=== PATIENT | male | born 1955 | race Asian ===

== ENCOUNTER 2019-07-12 21:18 | Inpatient (IN) | payer OTHER, MEDICAID ==
[~2019-07-12] VITALS: Ht 157.5 cm; Wt 49.9 kg
[2019-07-12 21:18] VITALS: BP 162/115
--- NOTE | 2019-07-12 21:18 | NUR ---
PT [facility] BLS. TAKEN TO BED 10
--- NOTE | 2019-07-12 21:20 | NUR ---
63/M PRESENTED TO ED BIBA. PT FROM [facility] WITH C/O ABD PAIN. 10/10 ABD PAIN. BOWEL SOUNDS HYPOACTIVE. NO DISTENTION NOTED. PT STATES V/D. NO FEVER NOTED. HX OF ENTEROCHOLITIS, STAGE 4 CHOLERECTAL CANCER, DEMENTIA, OSTEOARTHRITIS. TACHY AND HYPERTENSIVE.
--- NOTE | 2019-07-12 21:27 | NUR ---
Dr. Ponce examining patient.
[2019-07-12] MEDS ORDERED: NACL 0.9% 1,000 ML IV SCH ×2 (21:31→23:54)
[2019-07-12] MEDS ORDERED: MORPHINE SULFATE 2 MG/ML SYR IVP ONE (21:35)
--- NOTE | 2019-07-12 22:00 | NUR ---
PT TAKEN TO RAD
[2019-07-12 22:04] LABS: HEMATOCRIT 45.4 % (36-52); HEMOGLOBIN 14.9 g/dL (12.0-18.0); MEAN CORPUSCULAR HEMOGLOBIN 32 pg (27-31); MEAN CORPUSCULAR HGB CONC 33 g/dL (33-37); MEAN CORPUSCULAR VOLUME 99.2 fL (80-94); PLATELET COUNT (AUTO) 408 K/uL (140-450); RED BLOOD CELL COUNT(AUTO) 4.58 MIL/uL (4.20-6.10); RED CELL DISTRIBUTION WIDTH 21.1 % (11.6-13.7); WHITE BLOOD COUNT (AUTO) 3.3 K/uL (4.8-10.8)
[2019-07-12 22:15] LABS: PROTHROMBIN TIME 31.4 secs (10.8-13.4)
--- NOTE | 2019-07-12 22:15 | NUR ---
FAMILY AT BEDSIDE
[2019-07-12 22:18] LABS: ALBUMIN 2.3 g/dL (3.4-5.0); ANION GAP 14.6 (8-16); CARBON DIOXIDE 26.3 mmol/L (21-32); CREATININE 1.2 mg/dL (0.7-1.3); TOTAL BILIRUBIN 0.4 mg/dL (0.0-1.0)
[2019-07-12 22:20] LABS: POTASSIUM 2.9 mmol/L (3.5-5.1)
[2019-07-12 22:21] LABS: LYMPHOCYTES % (MANUAL) 47 % (20-46); MONOCYTES % (MANUAL) 13 % (5-12)
[2019-07-12] MEDS ORDERED: NACL 0.9% 500 ML IV ONE (22:25)
[2019-07-12] MEDS ORDERED: LEVOFLOXACIN 500 MG/D5W PREMIX 100 ML IV ONE (22:25)
[2019-07-12] MEDS ORDERED: POTASSIUM CHLORIDE 10 MEQ TABER PO ONE (22:25)
[2019-07-12] MEDS ORDERED: DOCU-300 PO (22:33)
[2019-07-12] MEDS ORDERED: [UNRECOGNIZED DRUG - CODE] PO (22:36)
[2019-07-12] MEDS ORDERED: MSCON30 PO (22:37)
--- NOTE | 2019-07-12 22:38 | NUR ---
PT UNABLE TO URINATE AT THIS TIME
[2019-07-12] MEDS ORDERED: METR500T1 PO (22:43)
[2019-07-12] MEDS ORDERED: CIPR500T4 PO (22:45)
--- NOTE | 2019-07-12 23:15 | NUR ---
PT DIARRHEA. CHANGED PT DIRTY LINENS. TOLERATED WELL.
[2019-07-12] MEDS ORDERED: hydrALAZINE 20 MG/ML VIAL IVP ONE (23:45)
[2019-07-12] MEDS ORDERED: LORazepam 2 MG/ML VIAL IM/IVP PRN (23:55)
[2019-07-12] MEDS ORDERED: ONDANSETRON 4 MG/2 ML VIAL IM/IVP PRN (23:55)
[2019-07-12] MEDS ORDERED: MORPHINE SULFATE 2 MG/ML SYR IVP PRN (23:55)
[2019-07-12] MEDS ORDERED: HYDROcodone/APAP 5/325 MG 1 TAB TAB PO PRN (23:55)
[2019-07-12] MEDS ORDERED: ZOLPIDEM 5 MG TAB PO PRN (23:55)
[2019-07-12] MEDS ORDERED: ACETAMINOPHEN 325 MG TAB PO PRN (23:55)
[2019-07-12] MEDS ORDERED: DOCUSATE SODIUM 100 MG GELCAP PO PRN (23:55)
[2019-07-12] MEDS ORDERED: hydrALAZINE 20 MG/ML VIAL ONE (23:57)
--- NOTE | 2019-07-13 00:09 | NUR ---
Dr. Brewer examining patient.
[2019-07-13 00:27] LABS: CHOL/HDL RATIO 2.1 (1-4.5); PHOSPHORUS 3.6 mg/dL (2.5-4.9); THYROID STIMULATING HORMONE 1.97 uIU/mL (0.34-3.74)
--- NOTE | 2019-07-13 00:50 | NUR ---
Patient will be admitted to care of [facility]. Admited to TELE. Will go to room 106 A. Belongings list completed. Report to MACHO GORDON.
--- NOTE | 2019-07-13 00:58 | NUR ---
RECIEVED PT AAOX1 , DEMENTIA, NID C/O ABDL. PAIN , FROM ER/GURNEY -TRANSFER TO BED BY MANUAL LIFT , IV SITE INTACT AND PATENT ,ACCOMPANIED BY SON , SKIN INTACT , INCONTINENT , ON NPO EXCEPT MEDS , PLAN OF CARE DISCUSSED BUT POOR ON UNDERSTANDING DUE TO MENTAL STATUS , ADMISSION ASSESSMENT DONE , MRSA SPECIMEN COLLECTED AND SENT TO LAB. . ON SAFETY/ FALL RISK PRECAUTION PROTOCOL - CALL LIGHT WITHIN REACH , WILL CONT. TO MONITOR.
[2019-07-13 01:00] LABS: APPEARANCE,URINE HAZY (CLEAR); BILIRUBIN,URINE 2+ (NEGATIVE); BLOOD, URINE 2+ (NEGATIVE); LEUKOCYTE ESTERASE ,URINE NEGATIVE (NEGATIVE); NITRITE, URINE POSITIVE (NEGATIVE); PH,URINE 6.5 (5.0-9.0); UGLUCOSE NEGATIVE (NEGATIVE)
[2019-07-13 01:06] VITALS: BP 117/67
[2019-07-13 01:08] LABS: COLOR,URINE AMBER (YELLOW)
[2019-07-13 01:17] LABS: RBC,URINE 20-50 /HPF (0-5); WBC,URINE 0-5 /HPF (0-5)
[2019-07-13] MEDS ORDERED: HYDROmorphone 1 MG/ML AMP IVP SCH (01:30)
[2019-07-13] MEDS ORDERED: INSULIN LISPRO SLIDING SCALE 100 UNITS/ML VIAL SUBQ PRN (01:30)
[2019-07-13] MEDS ORDERED: DEXTROSE 50% 50 ML SYR IVP PRN (01:30)
[2019-07-13 04:00] VITALS: BP 114/72
--- NOTE | 2019-07-13 04:00 | NUR ---
MADE ROUNDS , NO SIGNS OF DISTRESS NOTED - CALL LIGHT WITHIN REACH - ABD.- SOFT.
--- NOTE | 2019-07-13 04:32 | NUR ---
MADE ROUNDS , LOCALIZES PAIN -C/O PAIN - WILL MEDICATE ORDERED , WILL CONT. TO MONITOR.
[2019-07-13] MEDS: metroNIDAZOLE 500 MG/NS PREMIX 100 ML IV SCH ×3 (05:30→21:13)
[2019-07-13 06:36] LABS: MAGNESIUM 1.8 mg/dL (1.8-2.4); PHOSPHORUS 2.3 mg/dL (2.5-4.9)
--- NOTE | 2019-07-13 06:42 | NUR ---
PATIENT HAS BEEN SCREENED AND CATEGORIZED HIGH NUTRITION RISK. PATIENT WILL BE SEEN WITHIN 1-2 DAYS OF ADMISSION. 07/13/19-07/15/19 KELVIN TORREZ MS, RDN
[2019-07-13 06:46] LABS: ANION GAP 15.9 (8-16); CARBON DIOXIDE 21.8 mmol/L (21-32); CREATININE 0.9 mg/dL (0.7-1.3)
[2019-07-13 06:50] LABS: BASOPHILS % (AUTO) 0.2 % (0.0-2.0); EOSINOPHILS % (AUTO) 0.5 % (0.0-4.0); HEMOGLOBIN 12.8 g/dL (12.0-18.0); LYMPHOCYTES # (AUTO) 0.8 K/uL (2.0-11.5); MEAN CORPUSCULAR HEMOGLOBIN 33 pg (27-31); MEAN CORPUSCULAR HGB CONC 33 g/dL (33-37); MEAN CORPUSCULAR VOLUME 99.3 fL (80-94); MONOCYTES # (AUTO) 0.5 K/uL (0.8-1.0); MONOCYTES % (AUTO) 14.2 % (1.7-9.3); NEUTROPHILS % (AUTO) 61.1 % (42.2-75.2); PLATELET COUNT (AUTO) 324 K/uL (140-450); POTASSIUM 2.7 mmol/L (3.5-5.1); RED BLOOD CELL COUNT(AUTO) 3.93 MIL/uL (4.20-6.10); RED CELL DISTRIBUTION WIDTH 21.3 % (11.6-13.7); WHITE BLOOD COUNT (AUTO) 3.3 K/uL (4.8-10.8)
[2019-07-13] MEDS: BLOOD GLUCOSE MONITORING 1 DEV DEV FS SCH ×4 (07:06→20:17)
--- NOTE | 2019-07-13 07:30 | NUR ---
ENDORSED TO AM SHIFT WITH STABLE CONDITION.
--- NOTE | 2019-07-13 07:31 | NUR ---
RECEIVED BEDSIDE REPORT FROM CONFERENCE ASSISTANT NURSE. PATIENT IS AWAKE, ALERT AND ORIENTEDX4. NO SIGNS OF DISTRESS ON RA. SKIN IS INTACT. PATIENT IS FALL RISK D/T WEAKNESS. FALL RISK PROTOCOL IN PLACE. PATIENT IS CONTINENT, URINAL AT BEDSIDE. IV ON L AC 20G INFUSING NS AT 60. CLEAN, DRY AND INTACT. PATIENT IS NPO, SIGNS POSTED. BED IN LOW POSITION. CALL LIGHT WITHIN REACH. TELE MONITOR IN PLACE. WILL CONTINUE TO MONITOR
[2019-07-13 08:00] VITALS: BP 136/102
[2019-07-13] MEDS: LACTOBACILLUS RHAMNOSUS GG 1 EACH CAP PO SCH (08:06)
[2019-07-13] MEDS: DEXT 5% / NACL 0.9% 1,000 ML IV SCH (08:14)
--- NOTE | 2019-07-13 08:29 | NUR ---
ADMINISTERED MEDS. AND PRN PAIN MED. EDUCATED ON SIDE EFFECTS. PATIENT TOLERATED WELL. PLACED NGT IN R NOSTRIL. PATIENT TOLERATED WELL. DR PINEDO CHECKED FOR PLACEMENT, HE SAID NO NEED FOR XRAY JUST START LOW INTERMITTENT SUCTION. PATIENT ON LOW INTERMITTENT SUCTION. WILL CONTINUE TO MONITOR THE PATIENT.
[2019-07-13] MEDS ORDERED: SODIUM PHOSPHATE 118 ML ENEM RC SCH (08:41)
[2019-07-13] MEDS ORDERED: METOCLOPRAMIDE 10 MG/2 ML INJ VIAL IVP PRN (09:10)
[2019-07-13] MEDS: KCL 20 MEQ/WATER INJ PREMIX 200 ML IV SCH ×2 (09:26→11:28)
--- NOTE | 2019-07-13 09:26 | NUR ---
ADMINISTERED JOJO MED. PATIENT TOLERATING WELL. PATIENT NEEDS TO USE THE URINAL. GAVE PATIENT THE URINAL.
[2019-07-13] MEDS: HYDROmorphone 1 MG/ML AMP IVP PRN ×4 (10:16→22:42)
--- NOTE | 2019-07-13 11:30 | NUR ---
ADMINISTERED [facility] MED. PATIENT TOLERATING WELL. WILL CONTINUE TO MONITOR THE PATIENT
[2019-07-13 12:00] VITALS: BP 145/101
--- NOTE | 2019-07-13 12:28 | NUR ---
PATIENT IN NO DISTRESS. FAMILY AT BEDSIDE. WILL CONTINUE TO MONITOR
--- NOTE | 2019-07-13 13:43 | NUR ---
ADMINISTERED MEDS. PATIENT TOLERATED WELL. WILL CONTINUE TO MONITOR THE PATIENT
[2019-07-13 14:19] LABS: ANION GAP 9.8 (8-16); CREATININE 0.9 mg/dL (0.7-1.3); POTASSIUM 3.8 mmol/L (3.5-5.1)
--- NOTE | 2019-07-13 15:14 | NUR ---
PATIENT SITTING IN BED. NO SIGNS OF DISTRESS. FAMILY AT BEDSIDE
[2019-07-13] MEDS: MORPHINE SULFATE 2 MG/ML SYR IVP PRN ×2 (15:21→20:05)
--- NOTE | 2019-07-13 15:24 | NUR ---
PATIENT HAS PAIN. ADMINISTERED PRN PAIN MED. PATIENT TOLERATED WELL. EDUCATED ON SIDE EFFECTS.
[2019-07-13 16:00] VITALS: BP 142/99
--- NOTE | 2019-07-13 17:07 | NUR ---
patient is sleeping, will continue to monitor
--- NOTE | 2019-07-13 17:48 | NUR ---
ADMINISTERED PRN PAIN MED. PATIENT EDUCATED ON SIDE EFFECTS. TOLERATED WELL
--- NOTE | 2019-07-13 19:19 | NUR ---
GAVE BEDSIDE REPORT TO EVENT PROMOTIONS COORDINATOR NURSE. PATIENT ENDORSED IN STABLE CONDITION
--- NOTE | 2019-07-13 19:19 | NUR ---
RECIEVED PT. AAOX4 , NID , WITH NGT CONNECTING TO SUCTION - PATENT DRAINING WITH CLEAR LIQ. WITH SOME BROWN PARTICLES. C/O ABDL. PAIN , WITH IV SITE INTACT AND PATENT , WITH MEDI PORT AT THE UPPER RIGHT CHEST , ON SAFETY /FALL PREACAUTION PROTOCOL -BED ALARM ON , PLAN OF CARE DISCUSSED AND AND VERBALIZES UNDERSTANDING,SOFT AND FLAT ADBOMEN. WILL CONT. TO MONITOR. STILL FOR STOOL COLLECTION.
[2019-07-13 20:00] VITALS: BP 140/90
[2019-07-13] MEDS: LEVOFLOXACIN 500 MG/D5W PREMIX 100 ML IV SCH (22:47)
[2019-07-14] VITALS: BP 130/72
[2019-07-14] MEDS: MORPHINE SULFATE 2 MG/ML SYR IVP PRN ×2 (01:01→09:56)
[2019-07-14] MEDS: HYDROmorphone 1 MG/ML AMP IVP PRN ×6 (03:13→21:10)
--- NOTE | 2019-07-14 03:13 | NUR ---
C/O ABDL PAIN - ABD. SOFT , FLAT , BP :140/92 , O2 SAT 99% NM 100 - DILAUDID TIV GIVEN ORDERED - WILL CONT. TO MONITOR . CALL LIGHT WITHIN REACH.
[2019-07-14] MEDS: DEXT 5% / NACL 0.9% 1,000 ML IV SCH ×2 (03:23)
[2019-07-14 04:00] VITALS: BP 150/90
[2019-07-14] MEDS: metroNIDAZOLE 500 MG/NS PREMIX 100 ML IV SCH ×3 (05:06→21:04)
--- NOTE | 2019-07-14 06:00 | NUR ---
MADE ROUNDS , RESTING ON BED , TALKING OVER THE CELPHONE, WILL CONT. TO MONITOR. CALL LIGHT WITHIN REACH.
[2019-07-14] MEDS: BLOOD GLUCOSE MONITORING 1 DEV DEV FS SCH ×4 (06:51→21:04)
[2019-07-14 07:12] LABS: BASOPHILS % (AUTO) 0.1 % (0.0-2.0); EOSINOPHILS % (AUTO) 0.5 % (0.0-4.0); HEMATOCRIT 40.1 % (36-52); HEMOGLOBIN 13.2 g/dL (12.0-18.0); LYMPHOCYTES # (AUTO) 0.9 K/uL (2.0-11.5); MEAN CORPUSCULAR HEMOGLOBIN 33 pg (27-31); MEAN CORPUSCULAR HGB CONC 33 g/dL (33-37); MONOCYTES # (AUTO) 0.4 K/uL (0.8-1.0); MONOCYTES % (AUTO) 9.6 % (1.7-9.3); NEUTROPHILS % (AUTO) 69.8 % (42.2-75.2); PLATELET COUNT (AUTO) 317 K/uL (140-450); RED BLOOD CELL COUNT(AUTO) 4.05 MIL/uL (4.20-6.10); RED CELL DISTRIBUTION WIDTH 21.3 % (11.6-13.7); WHITE BLOOD COUNT (AUTO) 4.4 K/uL (4.8-10.8)
--- NOTE | 2019-07-14 07:16 | NUR ---
ENDORSED TO AM SHIFT FOR CONT. OF CARE , WITH STABLE CONDITION.
--- NOTE | 2019-07-14 07:17 | NUR ---
RECEIVED BEDSIDE REPORT FROM CONSTRUCTION PROJECT ADMINISTRATOR NURSE. PATIENT IS AWAKE, ALERT AND ORIENTEDX4. NO SIGNS OF DISTRESS ON RA. SKIN IS INTACT. IV ON L AC 20G INFUSING NS AT 60. CLEAN, DRY AND INTACT. TELE MONITOR IN PLACE. PATIENT IS FALL RISK, PROTOCOL IN PLACE. CONTINENT, URINAL AT BEDSIDE. NPO, SIGNS ARE POSTED. NGT IN R NARES ON INTERMITTENT SUCTION. BED IN LOW POSITION. CALL LIGHT WITHIN REACH. WILL CONTINUE TO MONITOR THE PATIENT.
[2019-07-14 08:00] VITALS: BP 129/93
[2019-07-14] MEDS: LACTOBACILLUS RHAMNOSUS GG 1 EACH CAP PO SCH (08:00)
[2019-07-14 08:01] LABS: ANION GAP 11.9 (8-16); CARBON DIOXIDE 24.8 mmol/L (21-32); CREATININE 0.9 mg/dL (0.7-1.3)
[2019-07-14 08:08] LABS: POTASSIUM 2.7 mmol/L (3.5-5.1)
--- NOTE | 2019-07-14 08:09 | NUR ---
ADMINISTERED MEDS. PATIENT TOLERATED WELL. EDUCATED ON SIDE EFFECTS. HELD LACTOBACILLUS, PATIENT ON NGT SUCTION AT THIS TIME. WILL CONTINUE TO MONITOR
[2019-07-14 08:15] LABS: MAGNESIUM 1.8 mg/dL (1.8-2.4); PHOSPHORUS 1.5 mg/dL (2.5-4.9)
[2019-07-14] MEDS ORDERED: POTASSIUM CHLORIDE 40 MEQ, LIDOCAINE MPF 1% - 5 mL VIAL 25 MG in NACL 0.9% 250 ML IV SCH (09:30)
--- NOTE | 2019-07-14 10:05 | NUR ---
ADMINISTERED MEDS. PATIENT TOLERATED WELL. EDUCATED ON SIDE EFFECTS. WILL CONTINUE TO MONITOR
--- NOTE | 2019-07-14 11:14 | NUR ---
CONTACTED PATIENT'S SISTER SHAHRIAR DECKER AT [phone] REGARDING HOSPICE EVAL, NO ANSWER. LEFT MESSAGE.
[2019-07-14 12:00] VITALS: BP 142/102
--- NOTE | 2019-07-14 12:35 | NUR ---
ADMINISTERED JOJO MED AND PRN PAIN MED. EDUCATED ON SIDE EFFECTS. PATIENT TOLERATED WELL
--- NOTE | 2019-07-14 13:13 | NUR ---
NUMBER OF THE PATIENT'S SISTER ON FILE IS A WRONG NUMBER. PRIMARY RN MADE AWARE.
--- NOTE | 2019-07-14 14:00 | NUR ---
PATIENT ASKED FOR BED SALVADOR. HAD A BM, DARK BROWN LIQ MUCOID. CLEANSED PATIENT. PATIENT LAYING IN BED W NO DISTRESS
--- NOTE | 2019-07-14 14:02 | NUR ---
CONTACTED PATIENT'S SISTER SHAHRIAR DECKER AT [phone], INTERPRETED BY DIGNA #[id number]. ALL HER CONCERNS AND QUESTIONS ANSWERED. SHE STATED SHE DOES NOT WANT HER BROTHER TO GO BACK TO [facility] BECAUSE THE PLACE IS TOO NOISY AND THE PATIENT COULD NOT SLEEP. SHE STATED THAT SHE WILL CONTACT ME TOMORROW WITH HER DECISION. DR. GARCIA MADE AWARE.
--- NOTE | 2019-07-14 15:57 | NUR ---
[employer] Note: I provided Radha from [facility] with printed patient's medical information.
[2019-07-14 16:00] VITALS: BP 131/97
--- NOTE | 2019-07-14 16:00 | NUR ---
PATIENT LAYING IN BED. NO DISTRESS. WILL CONTINUE TO MONITOR
--- NOTE | 2019-07-14 17:00 | NUR ---
ADMINISTERED NEEDED PAIN MED. PATIENT TOLERATED WELL. WILL CONTINUE TO MONITOR
[2019-07-14] MEDS: DEXT 5% / NACL 0.45% 1,000 ML IV SCH (17:01)
[2019-07-14 17:08] LABS: ANION GAP 10.4 (8-16); CREATININE 0.9 mg/dL (0.7-1.3); POTASSIUM 3.4 mmol/L (3.5-5.1)
--- NOTE | 2019-07-14 19:27 | NUR ---
GAVE BEDSIDE REPORT TO LOADING MACHINE ADJUSTER NURSE. PATIENT ENDORSED IN STABLE CONDITION
--- NOTE | 2019-07-14 19:28 | NUR ---
RECEIVED BEDSIDE REPORT FROM DAY SHIFT NURSE ALESSIA RN, PT STABLE, NO DISTRESS NOTED, IV TO L AC 20G PATENT,INTACT, INFUSING WELL, PT ON ROOM AIR, NO SOB, NG TUBE TO R NARES, ON SUCTION, PT RESTING, NO DISTRESS NOTED, DAUGHTER AT BEDSIDE, INITIAL ASSESSMENT DONE, ALL SAFETY PRECAUTION MET, CALL LIGHT WITHIN REACH, WILL CONTINUE TO MONITOR./
[2019-07-14 20:00] VITALS: BP 149/103
--- NOTE | 2019-07-14 21:10 | NUR ---
DUE MEDICATION ADMINISTERED, PT TOLERATED WELL, PT C/O PAIN, PAIN MEDICATION PER MD ORDER ADMINISTERED, PT RESTING, NO DISTRESS NOTED, CALL LIGHT WITHIN REACH, WILL CONTINUE TO MONITOR.
[2019-07-14] MEDS: LEVOFLOXACIN 500 MG/D5W PREMIX 100 ML IV SCH (23:12)
--- NOTE | 2019-07-14 23:12 | NUR ---
DUE MEDICATION ADMINISTERED, PT TOLERATED WELL, V/S TAKEN, WITHIN PT BASELINE, CALL LIGHT WITHIN REACH, WILL CONTINUE TO MONITOR.
[2019-07-15] VITALS: BP 143/97
[2019-07-15] MEDS: HYDROmorphone 1 MG/ML AMP IVP PRN ×5 (02:36→22:01)
--- NOTE | 2019-07-15 02:36 | NUR ---
PT C/O PAIN, PAIN MEDICATION PER DR ORDER ADMINISTERD, PT TOLERATED WELL, NO DISTRESS NOTED, CALL LIGHT WITHIN REACH, WILL CONTINUE TO MONITOR.
[2019-07-15] MEDS: DEXT 5% / NACL 0.45% 1,000 ML IV SCH ×2 (03:50→17:08)
[2019-07-15 04:00] VITALS: BP 142/106
[2019-07-15] MEDS: metroNIDAZOLE 500 MG/NS PREMIX 100 ML IV SCH ×3 (04:23→19:59)
--- NOTE | 2019-07-15 04:23 | NUR ---
DUE MEDICATION ADMINISTERED, V/S TAKEN, WITHIN PT BASELINE, CALL LIGHT WITHIN REACH, WILL CONTINUE TO MONITOR.
[2019-07-15] MEDS: BLOOD GLUCOSE MONITORING 1 DEV DEV FS SCH ×4 (05:39→19:35)
--- NOTE | 2019-07-15 05:50 | NUR ---
PT C/O PAIN, PAIN MEDICATION PER DR ORDER ADMINISTERED, PT TOLERATED WELL, NO DISTRESS NOTED, CALL LIGHT WITHOM REACH WILL CONTINUE TO MONITOR.
[2019-07-15 07:17] LABS: BASOPHILS % (AUTO) 0.1 % (0.0-2.0); EOSINOPHILS # (AUTO) 0.1 K/uL (0-0.4); EOSINOPHILS % (AUTO) 1.4 % (0.0-4.0); HEMATOCRIT 35.7 % (36-52); HEMOGLOBIN 11.7 g/dL (12.0-18.0); LYMPHOCYTES # (AUTO) 1.5 K/uL (2.0-11.5); LYMPHOCYTES % (AUTO) 23.1 % (20.5-51.1); MEAN CORPUSCULAR HEMOGLOBIN 32 pg (27-31); MEAN CORPUSCULAR HGB CONC 33 g/dL (33-37); MEAN CORPUSCULAR VOLUME 98.9 fL (80-94); MONOCYTES # (AUTO) 0.7 K/uL (0.8-1.0); MONOCYTES % (AUTO) 10.7 % (1.7-9.3); NEUTROPHILS # (AUTO) 4.1 K/uL (1.8-7.7); NEUTROPHILS % (AUTO) 64.7 % (42.2-75.2); PLATELET COUNT (AUTO) 264 K/uL (140-450); RED BLOOD CELL COUNT(AUTO) 3.61 MIL/uL (4.20-6.10); WHITE BLOOD COUNT (AUTO) 6.4 K/uL (4.8-10.8)
--- NOTE | 2019-07-15 07:24 | NUR ---
ENDORSED PT TO DAY SHIFT NURSE MARY RN, PT STABLE, NO DISTRESS NOTED, CALL LIGHT WITHIN REACH.
--- NOTE | 2019-07-15 07:26 | NUR ---
RECEIVED HAND OFF REPORT FROM PM RN PT AWAKE IN BED PT APPEARS STABLE AND IN NO APPARENT DISTRESS. PT IS SALINE LOCKED ALL SAFETY MEASURES ARE IN PLACE NG TUBE IN RIGHT NARES. WILL CONTINUE TO MONITOR
[2019-07-15 07:37] LABS: ANION GAP 10.6 (8-16); CARBON DIOXIDE 23.1 mmol/L (21-32); CREATININE 0.8 mg/dL (0.7-1.3)
[2019-07-15 07:43] LABS: MAGNESIUM 1.8 mg/dL (1.8-2.4); PHOSPHORUS 1.8 mg/dL (2.5-4.9)
[2019-07-15 08:00] VITALS: BP 122/86
[2019-07-15 08:02] LABS: POTASSIUM 2.7 mmol/L (3.5-5.1)
[2019-07-15] MEDS: LACTOBACILLUS RHAMNOSUS GG 1 EACH CAP PO SCH (08:44)
[2019-07-15] MEDS: MORPHINE SULFATE 2 MG/ML SYR IVP PRN (08:45)
--- NOTE | 2019-07-15 09:15 | NUR ---
FREQUENT ROUNDING ON PT PT APPEARS STABLE AND IN NO APPARENT DISTRESS, ALL SAFETY MEASURES ARE IN PLACE.
[2019-07-15] MEDS ORDERED: POTASSIUM CHLORIDE 40 MEQ, LIDOCAINE MPF 1% - 5 mL VIAL 25 MG in NACL 0.9% 250 ML IV SCH ×2 (10:00→19:00)
--- NOTE | 2019-07-15 10:57 | NUR ---
CONTACTED PATIENT'S SISTER SHAHRIAR DECKER AT [phone] REGARDING HER DECISION FOR HOSPICE, NO ANSWER. LEFT MESSAGE.
--- NOTE | 2019-07-15 11:34 | NUR ---
FREQUENT ROUNDING ON PT PT APPEARS STABLE AND IN NO APPARENT DISTRESS, ALL SAFETY MEASURES ARE IN PLACE.
[2019-07-15 12:00] VITALS: BP 131/96
[2019-07-15 13:40] LABS: ANION GAP 10.1 (8-16); CARBON DIOXIDE 25.1 mmol/L (21-32); CREATININE 0.8 mg/dL (0.7-1.3); POTASSIUM 3.2 mmol/L (3.5-5.1)
--- NOTE | 2019-07-15 13:46 | NUR ---
FREQUENT ROUNDING ON PT PT APPEARS STABLE AND IN NO APPARENT DISTRESS, ALL SAFETY MEASURES ARE IN PLACE.
--- NOTE | 2019-07-15 15:59 | NUR ---
07/15/19 RD INITIAL ASSESSMENT COMPLETED PLEASE REFER TO NUTRITION ASSESSMENT UNDER CARE ACTIVITY FOR ESTIMATED NUTRITIONAL NEEDS. 1. CONTINUE NPO MEDICALLY APPROPRIATE 2. IF/WHEN PATIENT IS MEDICALLY STABLE CONSIDER ORDERING SWALLOW EVALUATION TO ADVANCE DIET 3. RECOMMEND ENSURE TID 4. RD TO FOLLOW-UP 2-3 DAYS, HIGH RISK ALLISON DAN RD
[2019-07-15 16:00] VITALS: BP 136/89
--- NOTE | 2019-07-15 16:51 | NUR ---
FREQUENT ROUNDING ON PT PT APPEARS STABLE AND IN NO APPARENT DISTRESS, ALL SAFETY MEASURES ARE IN PLACE.
[2019-07-15] MEDS: NACL 0.45% 1,000 ML IV SCH (17:50)
[2019-07-15] MEDS ORDERED: SODIUM PHOS / POTASSIUM PHOS 1 PKT PDR PO SCH (18:00)
[2019-07-15] MEDS ORDERED: POTASSIUM CHLORIDE 10 MEQ TABER PO SCH (18:15)
--- NOTE | 2019-07-15 18:20 | NUR ---
NG TUBE REMOVED. PT TOLERATED WELL ALL SAFETY MEASURES ARE IN PLACE WILL CONTINUE TO MONITOR
--- NOTE | 2019-07-15 19:22 | NUR ---
ENDORSED PT TO PM RN PT AWAKE IN BED PT APPEARS STABLE AND IN NO APPARENT DISTRESS. ALL SAFETY MEASURES ARE IN PLACE
--- NOTE | 2019-07-15 19:23 | NUR ---
RECEIVED BEDSIDE REPORT FROM DAY SHIFT RN. PT IS AAOX4 ON RA. RESPIRATIONS ARE EQUAL AND UNLABORED. PT ABLE TO MAKE NEEDS KNOWN. SKIN IS INTACT. PT IS BEDREST. C/C ABD PAIN. DX POSSIBLE BOWEL OBSTRUCTION PMH OF COLORECTAL CANCER WITH POSSIBLE METASTIC DZ. LMB TODAY. IV ON LAC 20G NS INFUSING PER ORDERS AND K RIDER INFUSING PER ORDERS. POC DISCUSSED WITH PT. CALL LIGHT IS WITHIN REACH. WILL CONTINUE TO MONITOR.
--- NOTE | 2019-07-15 19:41 | NUR ---
VITAL SIGNS ARE WITHIN NORMAL LIMITS. BLOOD SUGAR IS 72. GAVE PT ORANGE JUICE. NO S/S OF HYPOGLYCEMIA. EDUCATED PT ON S/S. SAFETY MEASURES ARE IN PLACE. CALL LIGHT IS WITHIN REACH. WILL CONTINUE TO MONITOR.
[2019-07-15 20:00] VITALS: BP 131/93
--- NOTE | 2019-07-15 20:00 | NUR ---
JOJO MEDICATIONS GIVEN. PT TOLERATED WELL. CALL LIGHT IS WITHIN REACH
--- NOTE | 2019-07-15 22:01 | NUR ---
VSS, DILAUDID IVP GIVEN FOR ABD PAIN 10/10. SAFETY MEASURES ARE IN PLACE. CALL LIGHT IS WITHIN REACH
[2019-07-15] MEDS: LEVOFLOXACIN 500 MG/D5W PREMIX 100 ML IV SCH (22:03)
[2019-07-16] VITALS: BP 125/92
--- NOTE | 2019-07-16 | NUR ---
VITAL SIGNS ARE WITHIN NORMAL LIMITS. ALL NEEDS MET AT THIS TIME. WILL CONTINUE TO MONITOR.
[2019-07-16] MEDS: HYDROmorphone 1 MG/ML AMP IVP PRN ×5 (01:57→14:33)
--- NOTE | 2019-07-16 01:57 | NUR ---
ADMINISTERED DILAUDID IVP FOR ABD PAIN 07/31. PT TOLERATED WELL. WILL CONTINUE TO MONITOR.
--- NOTE | 2019-07-16 04:00 | NUR ---
FLAGYL IVPB NOW INFUSING PER ORDERS. ALL NEEDS MET AT THIS TIME. CALL LIGHT IS WITHIN REACH. WILL CONTINUE TO MONITOR.
[2019-07-16] MEDS: metroNIDAZOLE 500 MG/NS PREMIX 100 ML IV SCH ×2 (04:11→13:25)
--- NOTE | 2019-07-16 05:03 | NUR ---
ADMINISTERED DILAUDID IVP FOR ABD PAIN 07/31. BLOOD SUGAR IS 69 GAVE PT ORANGE JUICE PT STATES WILL WAIT 30MIN TO DRINK D/T PAIN. WILL RECHECK BLOOD SUGAR.
[2019-07-16] MEDS: BLOOD GLUCOSE MONITORING 1 DEV DEV FS SCH ×2 (06:47→11:30)
--- NOTE | 2019-07-16 06:47 | NUR ---
RECHECKED BLOOD SUGAR IS 76. KEPT SNACK AT BEDSIDE. CALL LIGHT IS WITHIN REACH. WILL CONTINUE TO MONITOR
--- NOTE | 2019-07-16 07:24 | NUR ---
GAVE BEDSIDE REPORT TO DAY RN. PT ENDORSED IN STABLE CONDITION
--- NOTE | 2019-07-16 07:25 | NUR ---
RECEIVED REPORT FROM PEOPLE MANAGER NURSE FOR CONTINUITY OF CARE. PT IN STABLE CONDITION. RESPIRATIONS EVEN AND UNLABORED. IV INTACT AND PATENT. BED IN LOW. POSITION. BED ALARM ON. WILL CONTINUE TO MONITOR.
[2019-07-16 08:00] VITALS: BP 129/90
--- NOTE | 2019-07-16 08:27 | NUR ---
GAVE PRN PAIN MEDICATION AT THIS TIME PER PT REQUEST. PT IN STABLE CONDITION.
[2019-07-16 08:51] LABS: HEMATOCRIT 37.8 % (36-52); MEAN CORPUSCULAR HEMOGLOBIN 32 pg (27-31); MEAN CORPUSCULAR HGB CONC 32 g/dL (33-37); MEAN CORPUSCULAR VOLUME 100.4 fL (80-94); PLATELET COUNT (AUTO) 287 K/uL (140-450); RED BLOOD CELL COUNT(AUTO) 3.77 MIL/uL (4.20-6.10); RED CELL DISTRIBUTION WIDTH 20.7 % (11.6-13.7); WHITE BLOOD COUNT (AUTO) 6.9 K/uL (4.8-10.8)
[2019-07-16 09:28] LABS: CREATININE 0.8 mg/dL (0.7-1.3)
[2019-07-16 09:51] LABS: EOSINOPHILS % (MANUAL) 1 % (0-4); LYMPHOCYTES % (MANUAL) 20 % (20-46); METAMYELOCYTES % 1 % (0-0); MONOCYTES % (MANUAL) 8 % (5-12); MYELOCYTES % 1 % (0-0)
[2019-07-16] MEDS: LACTOBACILLUS RHAMNOSUS GG 1 EACH CAP PO SCH (09:57)
[2019-07-16] MEDS ORDERED: [UNRECOGNIZED DRUG - CODE] PO (09:58)
[2019-07-16] MEDS ORDERED: SENN-73 PO (09:58)
[2019-07-16 10:09] LABS: ANION GAP 12.6 (8-16); CARBON DIOXIDE 21.4 mmol/L (21-32)
--- NOTE | 2019-07-16 11:14 | NUR ---
PER TOSHA OF [facility], PATIENT WILL GO TO ROOM 43C UNDER THE CARE OF DR. BRENNAN. WILL SET UP TRANSPORT. Addendum: 07/16/19 at 1158 by Elizabeth Moreno CM PER TOSHA THEY ARE NOT ABLE TO HELP WITH TRANSPORT, PATIENT'S INSURANCE IS [employer]. CONTACTED [facility] AT [phone], SHE STATED PATIENT IS NOT ON THEIR SYSTEM. CONTACTED JORGE LUIS PAPPAS AT [phone], ABLE TO SPEAK TO MARIA G Godwin (CUSTOMER SERVICE). SHE STATED CM FOR JORGE LUIS PAPPAS IS [place] [phone]. IPA IS [employer] [phone], SPOKE TO ZEHRA. HE STATED HE WILL FAX ME OVER FORM FOR TRANSPORTATION AUTH.
[2019-07-16 12:15] LABS: MAGNESIUM 1.8 mg/dL (1.8-2.4); PHOSPHORUS 1.9 mg/dL (2.5-4.9)
--- NOTE | 2019-07-16 13:12 | NUR ---
PER PATIENT'S SISTER SHAHRIAR DECKER, SHE CAN DRIVE THE PATIENT TO [facility]. DR. GARCIA MADE AWARE. PRIMARY RN BLADIMIR OF [facility] MADE AWARE.
[2019-07-16] MEDS: NACL 0.45% 1,000 ML IV SCH (13:50)
--- NOTE | 2019-07-16 13:50 | NUR ---
GAVE REPORT TO OLIVER STAFF NURSE AT [facility] FOR CONTINUITY OF CARE. ALL QUESTIONS ANSWERED AT THIS TIME.
--- NOTE | 2019-07-16 14:52 | NUR ---
GAVE DISCHARGE INSTRUCTIONS FOR TRANSFER TO [facility]. PT IN STABLE CONDITION. IV REMOVED, LUMEN INTACT. ID BAND REMOVED. PT WHEELED IN WHEELCHAIR TO LOBBY IN STABLE CONDITION WHERE SISTER WILL TRANSPORT TO FACILITY.
== END 2019-07-16 14:52 | DRG 374 ==
LOC: MED 21:18 → MTU 23:56
PROVIDERS: ADMIT General Practice; ATTEND General Practice
PROC: 0D9670Z Drainage of Stomach with Drainage Device, Via Natural or Artificial Opening (ICD-10-PCS; principal; 2019-07-13)
DX: C18.9 Malignant neoplasm of colon, unspecified (principal); E43 Unspecified severe protein-calorie malnutrition; N18.6 End stage renal disease; D68.9 Coagulation defect, unspecified; N39.0 Urinary tract infection, site not specified; C78.7 Secondary malignant neoplasm of liver and intrahepatic bile duct; E87.0 Hyperosmolality and hypernatremia; K56.699 Other intestinal obstruction unspecified as to partial versus complete obstruction; K72.90 Hepatic failure, unspecified without coma; E87.6 Hypokalemia; E11.9 Type 2 diabetes mellitus without complications; M19.90 Unspecified osteoarthritis, unspecified site; R19.7 Diarrhea, unspecified; E78.1 Pure hyperglyceridemia; R31.9 Hematuria, unspecified; E83.51 Hypocalcemia; E87.8 Other disorders of electrolyte and fluid balance, not elsewhere classified; D70.9 Neutropenia, unspecified; D75.89 Other specified diseases of blood and blood-forming organs; Z68.20 Body mass index [BMI] 20.0-20.9, adult; Z80.0 Family history of malignant neoplasm of digestive organs; Z85.048 Personal history of other malignant neoplasm of rectum, rectosigmoid junction, and anus; Z87.891 Personal history of nicotine dependence
CPT/HCPCS: 36415; 71045; 80048; 80053; 81001; 82272; 82948; 83036; 83605; 83690; 83735; 83880; 84100; 84134; 84443; 84484; 85025; 85610; 85730; 87040; 87045; 87070; 87081; 89055; 93005; 96361; 96365; 96375; 99285; C1758; J0360; J1170; J1956; J2001; J2270; J2405; J3480; J3490; J7030; J7042; Q0092

== ENCOUNTER 2019-08-28 15:47 | Inpatient (IN) | payer OTHER, MEDICAID ==
[~2019-08-28] VITALS: Ht 162.6 cm; Wt 45.4 kg
[2019-08-28 15:47] VITALS: BP 106/74
[~2019-08-28 15:47] MED LIST: DOCU-300 PO; SENN-73 PO; [UNRECOGNIZED DRUG - CODE] PO
[2019-08-28] MEDS ORDERED: LACT1TAB34 PO (16:00)
[2019-08-28] MEDS ORDERED: DOCU-299 PO (16:00)
[2019-08-28] MEDS ORDERED: ASCO500T45 PO (16:00)
[2019-08-28] MEDS ORDERED: NA P133E RC (16:00)
[2019-08-28] MEDS ORDERED: MEGACE PO (16:00)
[2019-08-28] MEDS ORDERED: MULT-1328 PO (16:00)
[2019-08-28] MEDS ORDERED: ZINC220C12 PO (16:00)
[2019-08-28] MEDS ORDERED: QUEPKT PO (16:00)
[2019-08-28] MEDS ORDERED: SIME80TA22 PO (16:00)
--- NOTE | 2019-08-28 16:15 | NUR ---
PT BIBA FOR ABD DISTENTION AND NO BM FOR 2 WEEKS. PER PT HE HAS NOT BEEN EATING MUCH BUT HAS NOT PASSED A BM FOR 2 WEEKS, PT DENIES ABD PAIN. ABD IS ROUND, DISTENDED, FIRM, NON TENDER, ACTIVE BS X4. PT HAS HX OF ABD STAGE 4 CANCER. PT AWAKE AND ALERT, IN NO ACUTE DISTRESS, VSS, WILL CONTINUE TO MONITOR.
--- NOTE | 2019-08-28 16:31 | NUR ---
Patient being evaluated by physician at bedside.
[2019-08-28] MEDS ORDERED: NACL 0.9% 1,000 ML IV SCH ×2 (16:42→19:53)
--- NOTE | 2019-08-28 17:01 | NUR ---
LAB AT BEDSIDE FOR DRAW.
[2019-08-28 17:13] LABS: BASOPHILS # (AUTO) 0.1 K/uL (0.00-0.22); BASOPHILS % (AUTO) 0.8 % (0.0-2.0); EOSINOPHILS # (AUTO) 0.1 K/uL (0-0.4); EOSINOPHILS % (AUTO) 1.2 % (0.0-4.0); HEMATOCRIT 30.7 % (36-52); HEMOGLOBIN 9.9 g/dL (12.0-18.0); LYMPHOCYTES # (AUTO) 1.3 K/uL (2.0-11.5); LYMPHOCYTES % (AUTO) 17.4 % (20.5-51.1); MEAN CORPUSCULAR HEMOGLOBIN 32 pg (27-31); MEAN CORPUSCULAR HGB CONC 32 g/dL (33-37); MEAN CORPUSCULAR VOLUME 98.8 fL (80-94); MONOCYTES # (AUTO) 0.4 K/uL (0.8-1.0); MONOCYTES % (AUTO) 5.9 % (1.7-9.3); NEUTROPHILS # (AUTO) 5.6 K/uL (1.8-7.7); NEUTROPHILS % (AUTO) 74.7 % (42.2-75.2); PLATELET COUNT (AUTO) 302 K/uL (140-450); RED BLOOD CELL COUNT(AUTO) 3.11 MIL/uL (4.20-6.10); RED CELL DISTRIBUTION WIDTH 16.3 % (11.6-13.7); WHITE BLOOD COUNT (AUTO) 7.4 K/uL (4.8-10.8)
[2019-08-28 17:53] LABS: ANION GAP 14.6 (8-16); CARBON DIOXIDE 25.7 mmol/L (21-32); CREATININE 0.6 mg/dL (0.7-1.3); POTASSIUM 4.3 mmol/L (3.5-5.1)
[2019-08-28 17:59] LABS: ALBUMIN 1.7 g/dL (3.4-5.0); TOTAL BILIRUBIN 0.5 mg/dL (0.0-1.0)
[2019-08-28 18:42] LABS: APPEARANCE,URINE CLEAR (CLEAR); BILIRUBIN,URINE 1+ (NEGATIVE); BLOOD, URINE NEGATIVE (NEGATIVE); COLOR,URINE YELLOW (YELLOW); LEUKOCYTE ESTERASE ,URINE NEGATIVE (NEGATIVE); NITRITE, URINE NEGATIVE (NEGATIVE); UGLUCOSE NEGATIVE (NEGATIVE)
--- NOTE | 2019-08-28 19:05 | NUR ---
RECEIVED REPORT FROM EVAN MUELLER. TRANSFER OF CARE AT THIS TIME.
[2019-08-28] MEDS ORDERED: LORazepam 2 MG/ML VIAL IM/IVP PRN (19:55)
[2019-08-28] MEDS ORDERED: ACETAMINOPHEN 325 MG TAB PO PRN (19:55)
[2019-08-28] MEDS ORDERED: MINERAL OIL 135 ML ENEM RC ONE (19:55)
[2019-08-28] MEDS ORDERED: DOCUSATE SODIUM 100 MG GELCAP PO PRN (19:55)
[2019-08-28] MEDS ORDERED: MAGNESIUM HYDROXIDE 2400 MG/30 ML UDC PO PRN (19:55)
[2019-08-28] MEDS ORDERED: BISACODYL 10 MG SUPP RC ONE ×2 (19:55→22:01)
[2019-08-28] MEDS ORDERED: HYDROcodone/APAP 5/325 MG 1 TAB TAB PO PRN (19:55)
[2019-08-28 20:00] VITALS: BP 117/78
--- NOTE | 2019-08-28 20:00 | NUR ---
REPORT RECEIVED FROM ED NURSE AT BEDSIDE. PT IN STABLE CONDITION. AAOX4. BOARD UPDATED. NO COMPLAINTS OF PAIN. NO SOB. AFEBRILE. PT IS BEDBOUND. MRSA NARES COLLECTED. IV SITE R FA 22G RUNNING NS@60ML/HR PATENT AND INTACT. SKIN WARM, DRY, AND NOT INTACT DUE TO SKIN TEARS TO THE L AND R BUTTOCKS. PT ABD DISTENDED. BED LOCKED IN LOW POSITION. CALL CARTER WITHIN REACH. SAFETY PRECAUTION IN PLACE. ALL NEEDS MET AT THIS TIME.
--- NOTE | 2019-08-28 20:00 | NUR ---
PT DECLINED CALLING FAMILY MEMBER.
--- NOTE | 2019-08-28 20:09 | NUR ---
Patient will be admitted to care of DR CERVANTES. Admited to TELE. Will go to room 122B. Belongings list completed. Report to EVAN CLINTON. ACCOMPANIED BY ALEN EMT
[2019-08-28 20:56] LABS: PROTHROMBIN TIME 10.1 secs (10.8-13.4)
--- NOTE | 2019-08-28 20:59 | NUR ---
HEPARIN GIVEN SUBQ. PT TOLERATED WELL.
[2019-08-28 21:00] LABS: CHOL/HDL RATIO 2.3 (1-4.5); MAGNESIUM 1.9 mg/dL (1.8-2.4); PHOSPHORUS 2.6 mg/dL (2.5-4.9); THYROID STIMULATING HORMONE 5.12 uIU/mL (0.34-3.74)
--- NOTE | 2019-08-28 21:45 | NUR ---
NG TUBE PLACED AND SET TO INTERMITTENT SUCTIONING. 12 FR. 4 ATTEMPTS TO INSERT. SWOOSH HEARD AFTER PLACEMENT TO ENSURE POSITIONING.
--- NOTE | 2019-08-28 22:01 | NUR ---
DULCOLAX GIVEN BY SUPPOSITORY. PT TOLERATED WELL.
[2019-08-29] VITALS: BP 106/73
--- NOTE | 2019-08-29 | NUR ---
PT SLEEPING COMFORTABLY BUT AROUSABLE. NO S/S OF DISTRESS NOTED. TELE MONITORING. VS STABLE. WILL CONTINUE TO MONITOR.
[2019-08-29] MEDS ORDERED: MORPHINE TAB ER 30 MG TABER PO PRN (00:25)
--- NOTE | 2019-08-29 01:25 | NUR ---
MINERAL OIL FLEET ENEMA DONE. PT STOOL MUCOIDAL BLOOD RED OUTPUT. MD NOTIFIED. NEW ORDERS INITIATED. PT SALINE LOCKED, PROTONIX TO BE GIVEN IN THE AM, AND FOBT TAKEN.
[2019-08-29 04:00] VITALS: BP 128/82
[2019-08-29] MEDS: SIMETHICONE 80 MG TAB.CHEW PO SCH ×3 (04:36→20:29)
--- NOTE | 2019-08-29 04:36 | NUR ---
SIMETHICONE TABLET GIVEN THROUGH NG TUBE. NG TUBE STOPPED FOR MEDICATION ABSORPTION. PT TOLERATED WELL.
[2019-08-29 06:24] LABS: BASOPHILS # (AUTO) 0.1 K/uL (0.00-0.22); BASOPHILS % (AUTO) 0.8 % (0.0-2.0); EOSINOPHILS # (AUTO) 0.2 K/uL (0-0.4); EOSINOPHILS % (AUTO) 2.3 % (0.0-4.0); HEMATOCRIT 31.4 % (36-52); HEMOGLOBIN 10.2 g/dL (12.0-18.0); LYMPHOCYTES # (AUTO) 1.6 K/uL (2.0-11.5); LYMPHOCYTES % (AUTO) 21.3 % (20.5-51.1); MEAN CORPUSCULAR HEMOGLOBIN 32 pg (27-31); MEAN CORPUSCULAR HGB CONC 32 g/dL (33-37); MEAN CORPUSCULAR VOLUME 98.1 fL (80-94); MONOCYTES # (AUTO) 0.5 K/uL (0.8-1.0); MONOCYTES % (AUTO) 6.5 % (1.7-9.3); NEUTROPHILS # (AUTO) 5.3 K/uL (1.8-7.7); NEUTROPHILS % (AUTO) 69.1 % (42.2-75.2); PLATELET COUNT (AUTO) 338 K/uL (140-450); RED CELL DISTRIBUTION WIDTH 16.4 % (11.6-13.7); WHITE BLOOD COUNT (AUTO) 7.6 K/uL (4.8-10.8)
--- NOTE | 2019-08-29 06:40 | NUR ---
PT SLEEPING COMFORTABLY BUT AROUSABLE. PT IN STABLE CONDITION.
[2019-08-29 06:43] LABS: ANION GAP 15.4 (8-16); CARBON DIOXIDE 23.2 mmol/L (21-32); CREATININE 0.5 mg/dL (0.7-1.3); POTASSIUM 3.6 mmol/L (3.5-5.1)
--- NOTE | 2019-08-29 07:34 | NUR ---
RECEIVED REPORT FROM RAILROAD HAND RN FOR CONTINUITY OF CARE. PT IS AAOX3. COOPERATIVE AND AWARE OF HIS SITUATION. PT IS ON RA. SKIN IS NON-INTACT. PT HAS A LEFT BUTTOCK OPEN WOUND. RIGHT HIP OPEN WOUND WITH REDNESS. PT HAS RIGHT FA 22G SALINE LOCKED PER MD ORDERS. PT HAS NG TUBE CONNECTED TO INTERMITTENT SUCTION. PT IS INCONTINENT. EXPLAINED POC TO PT AND PT VERBALIZED UNDERSTANDING. WILL ROUND FREQUENTLY ON PT. BED IN LOW POSITION, CALL LIGHT WITHIN REACH. WILL CONTINUE TO ROUND FREQUENTLY ON PT.
[2019-08-29 08:00] VITALS: BP 126/89
[2019-08-29] MEDS: ZINC SULF 220 MG CAP PO SCH (08:22)
[2019-08-29] MEDS: MORPHINE SULFATE 2 MG/ML SYR IVP PRN ×3 (08:22→23:54)
[2019-08-29] MEDS: PANTOPRAZOLE 40 MG INJ VIAL IVP SCH ×2 (08:22→20:29)
[2019-08-29] MEDS: MEGESTROL 40 MG TAB PO SCH (08:23)
[2019-08-29] MEDS: MULTIVITAMIN/MINERALS 1 TAB PO SCH (08:23)
[2019-08-29] MEDS: LACTOBACILLUS RHAMNOSUS GG 1 EACH CAP PO SCH (08:23)
[2019-08-29] MEDS: ASCORBIC ACID 500 MG TAB PO SCH ×2 (08:23→20:29)
--- NOTE | 2019-08-29 08:27 | NUR ---
PATIENT HAS BEEN SCREENED AND CATEGORIZED HIGH NUTRITION RISK. PATIENT WILL BE SEEN WITHIN 1-2 DAYS OF ADMISSION. 08/29/19-08/30/[address]
[2019-08-29] MEDS ORDERED: CHOLESTYRAMINE 4 GM/9 GM PKT PO SCH (09:00)
--- NOTE | 2019-08-29 09:21 | NUR ---
SCHEDULED MEDS GIVEN TO PT. PT TOLERATED WELL. PT RESTING IN BED. ALL NEEDS MET. WILL CONTINUE TO ROUND FREQUENTLY ON PT. BED IN LOW POSITION, CALL LIGHT WITHIN REACH.
--- NOTE | 2019-08-29 11:34 | NUR ---
PT RESTING I BED WITH FAMILY AT BEDSIDE. ALL NEEDS MET. WILL CONTINUE TO ROUND FREQUENTLY ON PT.
--- NOTE | 2019-08-29 11:42 | NUR ---
WOUND CARE EVALUATION NOTE: REASON FOR EVALUATION: LOW AMAIRANI SCALE AND LEFT BUTTOCK WOUND SKIN ASSESSMENT DONE WITH THIS 64 Y/O MALE PT ADMITTED TO [facility] WITH SBO AND LEFT HIP PRESSURE ULCER, PT. SKIN IS WARM AND VERY DRY, SKINNY, BONE TO SKIN WITH MUSCLE WASTE OBSERVED. BLE NO HAIR GROWTH, NO EDEMA. DORSAL PEDAL PULSES PRESENT AND NORMAL. CAPILLARY REFILLED < 2 SEC. POC DISCUSSED TO PRIMARY RN. INTEGUMENTARY: -ABDOMEN DISTENDED AND SOFT -INCONTINENT ASSOCIATE DERMATITIS (IAD) TO: LEFT BUTTOCK SUPERFICIAL SKIN EROSION 2X3CM, WOUND BED PINK AND MOIST, NO ODOR, QUYEN-WOUND SKIN REDNESS -PRESSURE ULCER INJURY STAGE 2, RIGHT HIP 1X1X0.1CM, WOUND BED IS PINK AND MOIST, NO ODOR, QUYEN-WOUND SKIN INTACT RECOMMENDATIONS: - CLEANSE LEFT BUTTOCK AND RIGHT HIP WITH NS. APPLY THIN LAYER OF Z GUARD AND COVER WITH OPTIFFOAM QD AND PRN IF SOILING -APPLY FORM DRESSING TO SACROCOCCYX AND RIGHT /LEFT HIPS AND SCAPULARS Q7 DAYS AND PRN IF SOILING PREVENTION -APPLY HEEL PROTECTORS TO BOTH HEELS AT ALL TIMES -OFFLOAD BILATERAL HEELS BY PLACING PILLOWS UNDER CALVES UNLESS OTHERWISE CONTRAINDICATED -PRESSURE REDISTRIBUTION SURFACE THERAPY -TURN AND REPOSITION Q2H, OFFLOAD SACRALCOCCYX AND HIPS BY TURNING RIGHT AND LEFT -CONTINUE TO FOLLOW RD RECOMMENDATIONS ALL ABOVE RECOMMENDATIONS DISCUSSED WITH PRIMARY RN. WILL FOLLOW UP PT Q7-10 DAYS. PLEASE CONTACT WOUND CARE NURSE FOR ANY QUESTION AND CHANGE OF WOUND CONDITION.
[2019-08-29 12:00] VITALS: BP 135/69
[2019-08-29] MEDS ORDERED: FOAM DRESSING TP SCH (12:30)
--- NOTE | 2019-08-29 13:19 | NUR ---
PT SLEEPING. ALL NEEDS MET. WILL CONTINUE TO ROUND FREQUENTLY ON PT. BED IN LOW POSITION, CALL LIGHT WITHIN REACH.
[2019-08-29] MEDS: HYDRAGUARD CREAM TP SCH (13:23)
--- NOTE | 2019-08-29 13:29 | NUR ---
08/29/19 RD INITIAL ASSESSMENT COMPLETED PLEASE REFER TO NUTRITION ASSESSMENT UNDER CARE ACTIVITY FOR ESTIMATED NUTRITIONAL NEEDS. 1. CONTINUE NPO TOLERATED 2. IF/WHEN MEDICALLY STABLE TO START NUTRITION CONSIDER ADVANCE DIET TOLERATED TO REGULAR DIET. 3. RECOMMEND ENSURE BID WHEN MEDICALLY STABLE TO START NUTRITION 4. RD TO FOLLOW-UP 2-3 DAYS, HIGH RISK ALLISON DAN RD
[2019-08-29] MEDS: ONDANSETRON 4 MG/2 ML VIAL IM/IVP PRN ×2 (14:29→15:06)
[2019-08-29] MEDS ORDERED: MAGNESIUM HYDROXIDE 2400 MG/30 ML UDC PO SCH (15:30)
--- NOTE | 2019-08-29 15:46 | NUR ---
PT SLEEPING. ALL NEEDS MET. WILL CONTINUE TO ROUND FREQUENTLY ON PT. BED IN LOW POSITION, CALL LIGHT WITHIN REACH.
[2019-08-29 16:00] VITALS: BP 121/91
--- NOTE | 2019-08-29 16:39 | NUR ---
SISTER SONG PHONE #: . TO BE CALLED FOR QUESTIONS OR IMPORTANT UPDATES.
[2019-08-29] MEDS: METOCLOPRAMIDE 10 MG/2 ML INJ VIAL IVP SCH ×2 (16:43→23:54)
[2019-08-29] MEDS: SENNA 8.6 MG TAB PO SCH (16:43)
--- NOTE | 2019-08-29 17:54 | NUR ---
PT RESTING IN BED. ALL NEEDS MET. WILL CONTINUE TO ROUND FREQUENTLY ON PT. BED IN LOW POSITION, CALL LIGHT WITHIN REACH.
--- NOTE | 2019-08-29 19:05 | NUR ---
PT AT BED AWAKE, ALERT AND ORIENTED X4, PERRLA 3MM, BRISK, COOPERATIVE, HEART RATE REGULAR S1S2 PRESENT, CAP REFILL <3S, PULSES 2+ BILATERAL UPPER AND LOWER EXTREMITIES, LUNG SOUNDS CLEAR THROUGHOUT, PT ON ROOM AIR, RR 12, NORMAL, UNLABORED, ABDOMEN, ROUND, TENDER TO TOUCH, DISTENDED, BOWEL SOUNDS ACTIVE IN ALL QUADRANTS, BLADDER, SOFT, ROUND, NONDISTENDED, NONTENDER, PT HAS GENERALIZED WEAKNESS, SKIN NON INTACT, PT HAS PRESSURE ULCER ON BILATERAL LEFT AND RIGHT BUTTOCKS, FOAM DRESSING IN PLACE, INTACT, DRY, PT HAS PERIPHERAL IV ON RIGHT FOREARM 22 GAUGE, SALINE LOCK. HOB 30 DEGREES, SIDE RAILS UP X2, BED AT LOWEST POSITION. WILL CONTINUE TO MONITOR.
--- NOTE | 2019-08-29 19:32 | NUR ---
ENDORSED PT TO DIRECTOR OF CORPORATE COMMUNICATIONS FOR CONTINUITY OF CARE. PT IN STABLE CONDITION AT THIS TIME.
[2019-08-29 20:00] VITALS: BP 120/78
[2019-08-29] MEDS: POLYETHYLENE GLYCOL 17 GM/PKT PO SCH (20:29)
--- NOTE | 2019-08-29 23:54 | NUR ---
PT COMPLAINS OF SHOULDER PAIN, ADMINISTERED MORPHINE ORDERED. WILL CONTINUE TO MONITOR.
[2019-08-30] VITALS: BP 107/66
--- NOTE | 2019-08-30 01:15 | NUR ---
PT AT BED EYES CLOSED BREATHING REGULARLY. WILL CONTINUE TO MONITOR.
--- NOTE | 2019-08-30 03:15 | NUR ---
PT AT BED EYES CLOSED BREATHING REGULARLY. WILL CONTINUE TO MONITOR.
[2019-08-30 04:00] VITALS: BP 141/102
--- NOTE | 2019-08-30 05:15 | NUR ---
PT AT BED EYES CLOSED BREATHING REGULARLY. WILL CONTINUE TO MONITOR.
[2019-08-30] MEDS: MORPHINE SULFATE 2 MG/ML SYR IVP PRN (05:32)
[2019-08-30] MEDS: SIMETHICONE 80 MG TAB.CHEW PO SCH ×3 (05:37→20:52)
[2019-08-30] MEDS: METOCLOPRAMIDE 10 MG/2 ML INJ VIAL IVP SCH ×3 (06:25→23:25)
--- NOTE | 2019-08-30 07:38 | NUR ---
RECEIVED HAND OFF REPORT FROM PM RN PT APPEARS STABLE AND IN NO APPARENT DISTRESS ALL SAFETY MEASURES ARE IN PLACE WILL CONTINUE TO MONITOR
--- NOTE | 2019-08-30 07:40 | NUR ---
CHANGE OF SHIFT REPORT GIVEN TO AM NURSE. PT AT STABLE CONDITION AT THIS TIME. AWAKE AND RESPONSIVE
[2019-08-30 08:09] LABS: FOLIC ACID 10.5 ng/mL (>3.0)
[2019-08-30 08:15] VITALS: BP 129/84
--- NOTE | 2019-08-30 08:39 | NUR ---
PT SISTER AT BEDSIDE SPOKE TO HER ABOUT RELEASE OF INFORMATION FROM PT PREVIOUS VISITS AT [facility]. PT STATED PT HAS BEEN TO [facility] SINCE HIS LAST VISIT HERE, PT SISTER QUESTIONED WHY WE NEEDED THE INFORMATION IF HE ONLY CAME IN FOR CONSTIPATION TRIED EXPLAINING TO THE PATIENT. INFORMED DR. BRENNAN HE STATED HE WILL GO SPEAK WITH THE PATIENT
[2019-08-30] MEDS: SENNA 8.6 MG TAB PO SCH ×3 (08:46→17:00)
[2019-08-30] MEDS: MULTIVITAMIN/MINERALS 1 TAB PO SCH (08:46)
[2019-08-30] MEDS: LACTOBACILLUS RHAMNOSUS GG 1 EACH CAP PO SCH (08:46)
[2019-08-30] MEDS: MEGESTROL 40 MG TAB PO SCH (08:47)
[2019-08-30] MEDS: ASCORBIC ACID 500 MG TAB PO SCH ×2 (08:47→20:52)
[2019-08-30] MEDS: POLYETHYLENE GLYCOL 17 GM/PKT PO SCH ×4 (08:47→20:52)
[2019-08-30] MEDS: ZINC SULF 220 MG CAP PO SCH (08:47)
[2019-08-30] MEDS: POTASSIUM CHLORIDE 20% 40 MEQ/15 ML UDC GT SCH (08:47)
[2019-08-30] MEDS: PANTOPRAZOLE 40 MG INJ VIAL IVP SCH ×2 (08:48→20:51)
[2019-08-30] MEDS: MORPHINE TAB ER 30 MG TABER PO SCH ×2 (09:20→20:52)
--- NOTE | 2019-08-30 09:38 | NUR ---
OBTAINED CONSENT FOR PICC LINE. PT SISTER WAS PRESENT AT BEDSIDE WHILE DR. BRENNAN EXPLAINED THE PROCEDURE RISK AND BENEFITS. DR. BRENNAN ANSWERED ALL QUESTIONS FOR PT AND PT SISTER. PLACED SIGNED CONSENT IN CHART.
--- NOTE | 2019-08-30 09:42 | NUR ---
spoke with krystal from [facility] line service, [facility] RN will call for ETA. Moreno-nurse assigned made aware.
--- NOTE | 2019-08-30 10:30 | NUR ---
JOVANY PICC LINE NURSE AT BEDSIDE. PERFORMED TIME OUT PT AWAKE AND STABLE IN BED. PT SISTER AT BEDSIDE. ALL SAFETY MEASURES ARE IN PLACE. WILL CONTINUE TO MONITOR
--- NOTE | 2019-08-30 10:31 | NUR ---
FAXED MEDICAL RECORD REQUEST TO [facility]. PT HAD HIS SISTER SIGN THE REQUEST PER HIS FAMILY DYNAMICS. PT AND PT SISTER OK FOR MEDICAL REQUEST. PLACED COMPLETED COPY IN PT CHART.
--- NOTE | 2019-08-30 10:57 | NUR ---
RIGHT UPPER ARM PICC LINE PLACED. CHEST XRAY PERFORMED. JOVANY PICC LINE NURSE INFORMED ME THAT IT IS OK TO USE.
[2019-08-30] MEDS: HYDRAGUARD CREAM TP SCH (12:04)
[2019-08-30 12:05] VITALS: BP 126/76
--- NOTE | 2019-08-30 12:38 | NUR ---
FREQUENT ROUNDING ON PT PT ASLEEP IN BED NOTABLE CHEST RISE AND FALL ALL SAFETY MEASURES ARE IN PLACE PT APPEARS STABLE AND IN NO APPARENT DISTRESS. FLACC 0. TELE BOX ON PLACE. WILL CONTINUE TO MONITOR
[2019-08-30] MEDS ORDERED: LORazepam 2 MG/ML VIAL IVP PRN (13:05)
[2019-08-30] MEDS ORDERED: TPN PER PHARMACY MC PRN (13:10)
[2019-08-30] MEDS: DEXT 5% /NACL 0.9% 1,000 ML IV SCH (13:45)
--- NOTE | 2019-08-30 13:55 | NUR ---
PLACED NG TUBE ON PT. PLACED BY ENGRAVER [employer]. ORDERED CHEST XRAY FOR VERIFICATION BEFORE PLACING THE NG TUBE ON INTERMITTEN SUCTION
--- NOTE | 2019-08-30 15:42 | NUR ---
REMOVED NG TUBE RECEIVED CALL FROM RADIOLOGY THEY STATED THE PLACEMENT WAS WRONG
--- NOTE | 2019-08-30 16:25 | NUR ---
PLACED ANOTHER NG TUBE ORDERED CHEST XRAY WILL WAIT FOR RESULTS
[2019-08-30 16:32] VITALS: BP 122/72
--- NOTE | 2019-08-30 17:34 | NUR ---
CHEST XRAY SHOWED NG TUBE PATENT AND OK FOR USE. PLACED NG TUBE TO SUCTION. PT AWAKE IN BED PT APPEARS STABLE AND IN NO APPARENT DISTRESS.
--- NOTE | 2019-08-30 19:25 | NUR ---
ENDORSED PT TO PM RN PT PT AWAKE IN BED PT APPEARS STABLE AND IN NO APPARENT DISTRESS. NG TUBE INPLACE TO INTERMITTEN SUCTION. CHRISTY PICC LINE IN PLACE INFUSING NO SIGNS OF INFILTRATION. ALL SAFETY MEASURES ARE IN PLACE
--- NOTE | 2019-08-30 19:30 | NUR ---
RECEIVED REPORT FROM AM SHIFT EVAN HERNANDEZ, FOR PT'S CONTINUITY OF CARE. PT IS LYING DOWN ASLEEP WITH NO SIGNS OF DISTRESS. PT IS ON ROOM AIR, ON CENTER [employer], NG TUBE IN PLACE WITH INTERMITTENT SUCTIONING, HAS RIGHT UPPER ARM PICC LINE INSERTED DURING AM SHIFT, HAS RIGHT FA 22G SALINE LOCK. WILL MONITOR PT THROUGHOUT SHIFT.
[2019-08-30 20:00] VITALS: BP 123/85
--- NOTE | 2019-08-30 20:52 | NUR ---
VS CHECKED AND CHARTED. ADMINISTERED SCHEDULED PO MEDICATIONS ORDERED. PT TOLERATED THEM WELL. PT C/O PAIN AND REQUESTED FOR MEDICATION. WILL MEDICATE PT FOR PAIN.
[2019-08-30] MEDS: HYDROmorphone 1 MG/ML AMP IVP PRN (21:05)
--- NOTE | 2019-08-30 21:05 | NUR ---
PT C/O SEVERE PAIN AND REQUESTED FOR PAIN MEDICATION. ADMINISTERED PRN IV PUSH PAIN MEDICATION ORDERED. PT TEACHING GIVEN REGARDING MEDICATION AND RELAXATION TECHNIQUES. WILL CONTINUE TO MONITOR PT.
--- NOTE | 2019-08-30 23:25 | NUR ---
VS CHECKED AND CHARTED. ADMINISTERED SCHEDULED IVP MEDICATION ORDERED. PT DENIES ANY PAIN AT THIS TIME. WILL CONTINUE TO MONITOR PT.
[2019-08-31] VITALS: BP 122/86
--- NOTE | 2019-08-31 02:00 | NUR ---
MADE ROUNDS. PT ASLEEP WITH NO SIGNS OF DISTRESS. WILL CONTINUE TO MONITOR PT.
[2019-08-31] MEDS: DEXT 5% /NACL 0.9% 1,000 ML IV SCH ×2 (03:20→14:45)
--- NOTE | 2019-08-31 03:20 | NUR ---
HUNG NEW IVF ORDERED. PT ASLEEP, VS CHECKED, DENIES ANY PAIN AT THIS TIME. WILL CONTINUE TO MONITOR PT.
[2019-08-31 04:00] VITALS: BP 111/72
[2019-08-31] MEDS: SIMETHICONE 80 MG TAB.CHEW PO SCH ×3 (06:05→21:00)
[2019-08-31] MEDS: METOCLOPRAMIDE 10 MG/2 ML INJ VIAL IVP SCH ×3 (06:05→23:40)
--- NOTE | 2019-08-31 06:05 | NUR ---
PT WAS REPOSITIONED AND CHANGED BY CNAS, PT TOLERATED ACTIVITY WELL. ADMINISTERED SCHEDULED IVP AND PO MEDICATIONS ORDERED. PT TOLERATED THEM WELL. NG TUBE ON INTERMITTENT SUCTION. 200ML OUT. PT DENIES ANY PAIN AT THIS TIME. WILL ENDORSE TO AM SHIFT RN FOR PT'S CONTINUITY OF CARE.
--- NOTE | 2019-08-31 07:07 | NUR ---
RECEIVED REPORT FROM PATIENT CARE TECHNICIAN NURSE AT BEDSIDE FOR CONTINUITY OF CARE. PT IS ASLEEP WITH NO SIGNS OF DISTRESS. RESPIRATIONS EVEN AND UNLABORED ON ROOM AIR, ON ASSESSMENT TECHNICIAN, NG TUBE IN PLACE WITH INTERMITTENT SUCTIONING, HAS RIGHT UPPER ARM PICC LINE INSERTED RUNNING IVF WELL. RIGHT FA 22G SALINE LOCK. UPDATED BOARD. PATIENT DENIES PAIN AT THIS TIME. SAFETY PRECAUTIONS IN PLACE, CALL LIGHT WITHIN REACH, BED ON LOWEST SETTING WITH BRAKES AND ALARM ON, WILL MONITOR PT THROUGHOUT SHIFT.
[2019-08-31 07:28] LABS: ANION GAP 10.4 (8-16); CARBON DIOXIDE 26.1 mmol/L (21-32); CREATININE 0.7 mg/dL (0.7-1.3); POTASSIUM 3.5 mmol/L (3.5-5.1)
[2019-08-31 07:35] LABS: MAGNESIUM 1.8 mg/dL (1.8-2.4); PHOSPHORUS 1.6 mg/dL (2.5-4.9)
[2019-08-31 08:00] VITALS: BP 116/84
[2019-08-31 08:09] LABS: HEMATOCRIT 28.2 % (36-52); HEMOGLOBIN 9.4 g/dL (12.0-18.0); MEAN CORPUSCULAR HEMOGLOBIN 33 pg (27-31); MEAN CORPUSCULAR HGB CONC 33 g/dL (33-37); MEAN CORPUSCULAR VOLUME 97.7 fL (80-94); PLATELET COUNT (AUTO) 354 K/uL (140-450); RED BLOOD CELL COUNT(AUTO) 2.88 MIL/uL (4.20-6.10); RED CELL DISTRIBUTION WIDTH 16.1 % (11.6-13.7); WHITE BLOOD COUNT (AUTO) 5.8 K/uL (4.8-10.8)
[2019-08-31 09:18] LABS: EOSINOPHILS % (MANUAL) 2 % (0-4); LYMPHOCYTES % (MANUAL) 24 % (20-46); MONOCYTES % (MANUAL) 2 % (5-12)
[2019-08-31] MEDS: MEGESTROL 40 MG TAB PO SCH (09:55)
[2019-08-31] MEDS: MULTIVITAMIN/MINERALS 1 TAB PO SCH (09:56)
[2019-08-31] MEDS: SENNA 8.6 MG TAB PO SCH ×3 (09:58→17:00)
[2019-08-31] MEDS: ZINC SULF 220 MG CAP PO SCH (09:59)
[2019-08-31] MEDS: MORPHINE TAB ER 30 MG TABER PO SCH ×2 (10:00→21:00)
[2019-08-31] MEDS: LACTOBACILLUS RHAMNOSUS GG 1 EACH CAP PO SCH (10:01)
[2019-08-31] MEDS: ASCORBIC ACID 500 MG TAB PO SCH ×2 (10:01→21:00)
[2019-08-31] MEDS: POLYETHYLENE GLYCOL 17 GM/PKT PO SCH ×4 (10:04→20:08)
[2019-08-31] MEDS: POTASSIUM CHLORIDE 20% 40 MEQ/15 ML UDC GT SCH (10:04)
[2019-08-31] MEDS: PANTOPRAZOLE 40 MG INJ VIAL IVP SCH ×2 (10:05→20:26)
--- NOTE | 2019-08-31 10:05 | NUR ---
ORDERED MEDICATIONS GIVEN TO PATIENT THROUGH GTUBE WITH 50 ML OF WATER. PATIENT TOLERATED IT. NO COMPLAINTS AT THIS TIME. SAFETY PRECAUTIONS IN PLACE, CALL LIGHT WITHIN REACH, WILL CONTINUE TO MONITOR PATIENT.
--- NOTE | 2019-08-31 10:45 | NUR ---
PATIENT VOMITED 100 ML OF EMESIS. PATIENT CLEANED AND CHANGED. WILL CONTINUE TO MONITOR PATIENT.
[2019-08-31 12:00] VITALS: BP 122/84
--- NOTE | 2019-08-31 13:30 | NUR ---
PATIENT REFUSED 1300 MEDICATIONS. EXPLAINED TO PATIENT INDICATIONS AND BENEFITS. PATIENT STILL REFUSED. WILL CONTINUE TO MONITOR PATIENT.
--- NOTE | 2019-08-31 13:30 | NUR ---
DRESSING TO BUTTOCKS AND HIP CHANGED. PATIENT TOLERATED IT WELL. NO COMPLAINTS AT THIS TIME. PATIENT IN STABLE CONDITION. WILL CONTINUE TO MONITOR PATIENT.
[2019-08-31] MEDS: HYDRAGUARD CREAM TP SCH (14:00)
--- NOTE | 2019-08-31 15:00 | NUR ---
PATIENT REFUSED 1500 REGLAN. EXPLAINED TO PATIENT INDICATIONS AND BENEFITS. PATIENT STILL REFUSED.
[2019-08-31] MEDS: HYDROmorphone 1 MG/ML AMP IVP PRN ×2 (15:46→21:51)
--- NOTE | 2019-08-31 15:46 | NUR ---
PRN PAIN MEDICATION GIVEN REQUESTED. PATIENT TOLERATED IT. NO COMPLAINTS AT THIS TIME. WILL CONTINUE TO MONITOR PATIENT.
[2019-08-31 16:00] VITALS: BP 113/80
[2019-08-31] MEDS ORDERED: POTASSIUM PHOSPHATE 15 MM in NACL 0.9% 250 ML IV ONE (16:00)
--- NOTE | 2019-08-31 16:05 | NUR ---
PATIENT'S SISTER AND BROTHER IN TO SEE PATIENT. UPDATED THEM ON PLAN OF CARE AND PATIENT'S STATUS. THEY VERBALIZED UNDERSTANDING.
--- NOTE | 2019-08-31 16:31 | NUR ---
ORDERED MEDICATION GIVEN. PATIENT TOLERATED IT WELL. NO COMPLAINTS AT THIS TIME. FAMILY AT BEDSIDE. WILL CONTINUE TO MONITOR PATIENT.
--- NOTE | 2019-08-31 17:00 | NUR ---
PATIENT REFUSED 1700 MEDICATIONS. EXPLAINED TO PATIENT INDICATIONS AND BENEFITS. PATIENT STILL REFUSED. WILL CONTINUE TO MONITOR PATIENT.
--- NOTE | 2019-08-31 18:15 | NUR ---
PATIENT VOIDED AND HAD SMEAR OF BM. PATIENT CLEANED, CHANGED, AND REPOSITIONED FOR COMFORT AND TO OFFLOAD PRESSURE AREAS.
--- NOTE | 2019-08-31 19:10 | NUR ---
REPORT GIVEN TO DIRECTOR MATERNAL CHILD NURSE AT BEDSIDE FOR CONTINUITY OF CARE. PATIENT IN STABLE CONDITION.
--- NOTE | 2019-08-31 19:15 | NUR ---
RECEIVED BEDSIDE REPORT FROM AM SHIFT RN RUPERTO, FOR PT'S CONTINUITY OF CARE. PT IS LYING DOWN MOANING, C/O GENERALIZED PAIN. IS ON ROOM AIR, ON NAVAL AIRCREWMAN TACTICAL HELICOPTER, HAS NG TUBE ON INTERMITTENT SUCTION, HAS RIGHT UPPER ARM PICC LINE DOUBLE LUMEN WITH IV POTASSIUM PHOSPHATE, AND RIGHT FA 22G SALINE LOCK. PT TEACHING GIVEN RE: PAIN MEDICATION AND SCHEDULED MEDICATION. SAFETY MEASURES IN PLACE, BED IS ON LOW POSITION, SIDE RAILS ARE UP, AND CALL LIGHT IS WITHIN REACH. WILL MONITOR PT THROUGHOUT SHIFT.
[2019-08-31 20:00] VITALS: BP 123/84
[2019-08-31] MEDS ORDERED: AMINO ACIDS 8.5% IV SCH ×2 (20:00)
[2019-08-31] MEDS ORDERED: DEXTROSE 50% IV SCH ×2 (20:00)
--- NOTE | 2019-08-31 20:26 | NUR ---
VS CHECKED AND CHARTED. ADMINISTERED SCHEDULED CONTINUOUS DRIP TPN, IV PUSH, PO MIRALAX, AND PRN PO PAIN MEDICATION ORDERED. PT REFUSED THE OTHER SCHEDULED PO MEDICATIONS. PT C/O INCREASING GENERALIZED PAIN. PT TEACHING GIVEN RE: PAIN MEDICATION. PT VERBALIZED UNDERSTANDING. WILL CONTINUE TO MONITOR PT.
--- NOTE | 2019-08-31 21:51 | NUR ---
PT C/O INCREASED GENERALIZED PAIN 05/31. ADMINISTERED PRN IV PUSH PAIN MEDICATION ORDERED. WILL CONTINUE TO MONITOR PT.
--- NOTE | 2019-08-31 23:55 | NUR ---
S[place] FROM [facility] CALLED AND SAID THEY DO NOT HAVE BED YET.
[2019-09-01] VITALS: BP 129/89
[2019-09-01] MEDS: DEXT 5% /NACL 0.9% 1,000 ML IV SCH
--- NOTE | 2019-09-01 00:05 | NUR ---
ADMINISTERED SCHEDULED IV PUSH MEDICATION ORDERED. PT C/O GENERALIZED PAIN. EXPLAINED TO PT RE: NEXT DOSE AVAILABLE. WILL CONTINUE TO MONITOR PT.
[2019-09-01] MEDS ORDERED: HYDROmorphone 1 MG/ML AMP IVP SCH ×2 (02:30→09:00)
--- NOTE | 2019-09-01 02:39 | NUR ---
FOUND PT C/O SEVERE GENERALIZED PAIN, FOUND NG TUBE OUT, PT REFUSED TO HAVE NG TUBE REINSERTED. NOTIFIED MD JALEEL ORDERED IV PUSH PAIN MEDICATION ONCE. ADMINISTERED IV PUSH PAIN MEDICATION. WILL CONTINUE TO MONITOR PT.
[2019-09-01 04:00] VITALS: BP 127/88
[2019-09-01] MEDS: HYDROmorphone 1 MG/ML AMP IVP PRN (04:35)
--- NOTE | 2019-09-01 04:35 | NUR ---
VS CHECKED AND CHARTED. PT STILL COMPLAINS OF SEVERE PAIN. ADMINISTERED PRN IVP PAIN MEDICATION ORDERED. WILL CONTINUE TO MONITOR PT.
[2019-09-01] MEDS: SIMETHICONE 80 MG TAB.CHEW PO SCH ×2 (04:46→12:07)
[2019-09-01 05:38] LABS: BASOPHILS % (AUTO) 0.3 % (0.0-2.0); EOSINOPHILS # (AUTO) 0.1 K/uL (0-0.4); EOSINOPHILS % (AUTO) 2.1 % (0.0-4.0); LYMPHOCYTES # (AUTO) 1.5 K/uL (2.0-11.5); RED CELL DISTRIBUTION WIDTH 16.9 % (11.6-13.7)
[2019-09-01 05:45] LABS: HEMATOCRIT 30.2 % (36-52); HEMOGLOBIN 9.4 g/dL (12.0-18.0); LYMPHOCYTES % (AUTO) 21.6 % (20.5-51.1); MEAN CORPUSCULAR HEMOGLOBIN 32 pg (27-31); MEAN CORPUSCULAR HGB CONC 31 g/dL (33-37); MEAN CORPUSCULAR VOLUME 102.9 fL (80-94); MONOCYTES # (AUTO) 0.6 K/uL (0.8-1.0); MONOCYTES % (AUTO) 8.2 % (1.7-9.3); NEUTROPHILS # (AUTO) 4.8 K/uL (1.8-7.7); NEUTROPHILS % (AUTO) 67.8 % (42.2-75.2); PLATELET COUNT (AUTO) 332 K/uL (140-450); RED BLOOD CELL COUNT(AUTO) 2.94 MIL/uL (4.20-6.10); WHITE BLOOD COUNT (AUTO) 7.1 K/uL (4.8-10.8)
[2019-09-01] MEDS: METOCLOPRAMIDE 10 MG/2 ML INJ VIAL IVP SCH ×2 (06:10→15:17)
--- NOTE | 2019-09-01 06:10 | NUR ---
ADMINISTERED SCHEDULED IV PUSH MEDICATION ORDERED. PT TOLERATED IT WELL. PT STILL COMPLAINS OF SEVERE PAIN, CONTINUOUS TO MOAN, STATES THAT MEDICATIONS DID NOT HELP. WILL ENDORSE TO AM SHIFT RN TO NOTIFY RE: PAIN AND NG TUBE, AND FOR PT'S CONTINUITY OF CARE.
[2019-09-01 06:11] LABS: PHOSPHORUS 5.1 mg/dL (2.5-4.9)
[2019-09-01 06:15] LABS: ANION GAP 12.4 (8-16); CARBON DIOXIDE 22.8 mmol/L (21-32); CREATININE 0.7 mg/dL (0.7-1.3); POTASSIUM 5.2 mmol/L (3.5-5.1)
--- NOTE | 2019-09-01 06:40 | NUR ---
RECEIVED CRITICAL LAB VALUE FOR GLUCOSE - 727. NOTIFIED CARROL MARMOLEJO AT THIS TIME.
--- NOTE | 2019-09-01 06:50 | NUR ---
NEW MD ORDER FOR IVF, NS 500ML BOLUS. WILL CARRY OUT ORDER AND ENDORSE TO AM SHIFT RN.
[2019-09-01] MEDS ORDERED: NACL 0.9% 500 ML IV ONE (07:00)
--- NOTE | 2019-09-01 07:45 | NUR ---
RECEIVED REPORT FROM ELECTRON TUBE ASSEMBLER NURSE. AAOX2 TO PERSON AND PLACE. RESPIRATIONS EVEN AND UNLABORED ON RA. IV ON RT FA 22 GA ON SALINE LOCK AND RT UA PICC LINE RUNNING IVF PER ORDER. ABD DISTENDED, ACTIVE BS. NOTED WOUND DRESSINGS TO SACRAL AREA AND RT AND LT HIPS, CLEAN, DRY AND INTACT, SKIN IS WARM TO TOUCH. PT ON FALL RISK PRECAUTIONS, SAFETY MEASURES IN PLACE, CALL LIGHT WITHIN REACH. REVIEWED POC WITH PT, PT VERBALIZED UNDERSTANDING BUT WILL NEED REINFORCEMENT.
--- NOTE | 2019-09-01 07:47 | NUR ---
PROVIDED WARM BLANKET D/T PT'S REQUEST. WILL CONTINUE TO MONITOR.
--- NOTE | 2019-09-01 07:59 | NUR ---
BLOOD SUGAR IS 130 AT THIS TIME, NO S/S OF HYPERGLYCEMIA. NS BOLUS FINISHED AT THIS TIME. PT IS COMPLAINING OF GENERALIZED PAIN THROUGHOUT BODY. PT REFUSED TO TAKE PAIN MEDICATION BY MOUTH AND STATES "MY PAIN IS 10". WILL NOTIFY PHYSICIAN REGARDING PT'S CONDITION.
[2019-09-01 08:00] VITALS: BP 127/80
[2019-09-01] MEDS: BLOOD GLUCOSE MONITORING 1 DEV DEV FS SCH ×2 (08:07→11:28)
--- NOTE | 2019-09-01 08:07 | NUR ---
DR. CERVANTES AND RESIDENTS IN PT'S ROOM DISCUSSING PT'S POC AND CONCERNS. PT'S QUESTIONS ANSWERED AND CLARIFIED. NO SIGNS OF DISTRESS AT THIS TIME.
[2019-09-01] MEDS: ZINC SULF 220 MG CAP PO SCH (09:00)
[2019-09-01] MEDS: MULTIVITAMIN/MINERALS 1 TAB PO SCH (09:00)
[2019-09-01] MEDS: MORPHINE TAB ER 30 MG TABER PO SCH (09:00)
[2019-09-01] MEDS: POLYETHYLENE GLYCOL 17 GM/PKT PO SCH ×3 (09:00→17:00)
[2019-09-01] MEDS ORDERED: FOAM DRESSING TP SCH (09:00)
[2019-09-01] MEDS: MEGESTROL 40 MG TAB PO SCH (09:00)
[2019-09-01] MEDS: SENNA 8.6 MG TAB PO SCH ×3 (09:00→17:00)
[2019-09-01] MEDS: ASCORBIC ACID 500 MG TAB PO SCH (09:00)
[2019-09-01] MEDS: POTASSIUM CHLORIDE 20% 40 MEQ/15 ML UDC GT SCH (09:00)
[2019-09-01] MEDS: LACTOBACILLUS RHAMNOSUS GG 1 EACH CAP PO SCH (09:00)
--- NOTE | 2019-09-01 09:19 | NUR ---
ADMINISTERED DILAUDID PER ORDER FOR LEVEL 10/10 GENERALIZED PAIN. ALSO GIVEN PANTOPRAZOLE PER ORDER, PT IS AWARE OF INDICATIONS AND POTENTIAL SIDE EFFECTS. PT REFUSED TO TAKE PO MEDICATIONS STATES "I THROW UP", PT IS ALSO REFUSING NG TUBE SAYING "NO" AND SHAKING HEAD FROM LEFT TO RIGHT. WILL NOTIFY PHYSICIAN.
[2019-09-01] MEDS: PANTOPRAZOLE 40 MG INJ VIAL IVP SCH (09:23)
[2019-09-01] MEDS ORDERED: MORPHINE SULFATE 2 MG/ML SYR IVP PRN (10:20)
[2019-09-01 11:41] LABS: ANION GAP 9.4 (8-16); CARBON DIOXIDE 25.2 mmol/L (21-32); CREATININE 0.5 mg/dL (0.7-1.3); POTASSIUM 3.6 mmol/L (3.5-5.1)
[2019-09-01 11:44] LABS: MAGNESIUM 1.6 mg/dL (1.8-2.4); PHOSPHORUS 2.5 mg/dL (2.5-4.9)
[2019-09-01 12:00] VITALS: BP 125/87
[2019-09-01] MEDS: HYDRAGUARD CREAM TP SCH (12:08)
[2019-09-01] MEDS ORDERED: KETOROLAC 15 MG/ML VIAL IVP PRN (12:15)
--- NOTE | 2019-09-01 12:15 | NUR ---
NOTIFIED DR. CHATMAN REGARDING PT'S REFUSAL OF PO MEDICATIONS PER ORDER, PER PHYSICIAN OK TO HOLD AT THIS TIME. ALSO REPORTED PT'S C/O PAIN, AWAITING ORDERS.
[2019-09-01] MEDS ORDERED: HYDROmorphone 1 MG/ML AMP IVP PRN (12:30)
[2019-09-01] MEDS: KETOROLAC 15 MG/ML VIAL IVP PRN ×2 (12:49→18:50)
--- NOTE | 2019-09-01 12:49 | NUR ---
ADMINISTERED TORADOL PER ORDER FOR LEVEL 6/10 GENERALIZED PAIN, PT IS AWARE OF INDICATIONS AND POTENTIAL SIDE EFFECTS.
--- NOTE | 2019-09-01 15:05 | NUR ---
09/01/19 RD FOLLOW UP COMPLETED PLEASE REFER TO NUTRITION ASSESSMENT UNDER CARE ACTIVITY FOR ESTIMATED NUTRITIONAL NEEDS. 1. CONTINUE NPO AND TPN TOLERATED -TPN OF D15%, AA 4.25%, AND LIPID 10% AT 60 ML/HR WILL PROVIDE 1122 KCAL AND 61 GM OF PROTEIN WHICH MEETS 70% OF ESTIMATED ENERGY INTAKE AND 76% OF ESTIMATED PROTEIN INTAKE 2. RECOMMEND TO INCREASE TPN TO MEET 75% OF ESTIMATED NEEDS; 1200 KCAL AND 60 GM OF PROTEIN 3. IF/WHEN MEDICALLY CLEAR RECOMMEND A SWALLOW EVAL TO ADVANCE TO PO DIET 4. RD TO FOLLOW-UP 2-3 DAYS, HIGH RISK ALLISON DAN, JD
--- NOTE | 2019-09-01 15:17 | NUR ---
ADMINISTERED REGLAN PER ORDER, PT AWARE OF INDICATION AND POTENTIAL SIDE EFFECTS.
[2019-09-01 16:00] VITALS: BP 134/88
--- NOTE | 2019-09-01 17:30 | NUR ---
SISTER SHAHRIAR AT BEDSIDE SPEAKING WITH DR. KOWALSKI. PT HAS NO SIGNS OF DISTRESS.
[2019-09-01] MEDS ORDERED: DIL1I IVP (17:38)
[2019-09-01] MEDS ORDERED: SENN-74 PO (17:40)
[2019-09-01] MEDS ORDERED: METO5SOL24 IVP (17:40)
[2019-09-01] MEDS ORDERED: Tpn Per Pharmacy MC (17:40)
[2019-09-01] MEDS ORDERED: MOM PO (17:40)
[2019-09-01] MEDS ORDERED: POLY17PD46 PO (17:40)
[2019-09-01] MEDS ORDERED: BLOOD GLUCOSE MONITORING 1 DEV DEV FS SCH (18:00)
--- NOTE | 2019-09-01 19:05 | NUR ---
REPORT GIVEN TO EVAN PATTERSON. ALL QUESTIONS ANSWERED AND CLARIFIED.
--- NOTE | 2019-09-01 19:38 | NUR ---
PT HAS BEEN DISCHARGED FOR TRANSFER TO C[facility]/SNF. PT UNABLE TO SIGN PAPERWORK. PT'S SISTER/SONG AWARE AND GIVEN UPDATE. ALL BELONGINGS IN PT POSSESSION. PER DR. CHATMAN, LEAVE RT UA PICC TO RUN IVF PER ORDER AND IV ON RT FA SALINE LOCK IN PLACE. WRISTBANDS AND TELE MONITOR REMOVED. PT TRANSFERRED OUT OF UNIT VIA [facility] P[facility]NEL AT SIDE. PT IN STABLE CONDITION.
[2019-09-01] MEDS ORDERED: PNEUMOCOCCAL VACCINE 23 MCG/0.5 ML VIAL IMVAC PRN (20:00)
[2019-09-01] MEDS ORDERED: DEXTROSE 50% IV SCH ×3 (20:00)
[2019-09-01] MEDS ORDERED: INFLUENZA VACCINE QUAD 0.5 ML SYR IMVAC PRN (20:00)
[2019-09-01] MEDS ORDERED: AMINO ACIDS 8.5% IV SCH ×3 (20:00)
[2019-09-01] MEDS ORDERED: FAT EMULSION 20% IV SCH ×3 (20:00)
== END 2019-09-01 18:38 | disposition home health service (06) | DRG 388 ==
LOC: MED 15:47 → MTU 19:25
PROVIDERS: ADMIT General Practice; ATTEND General Practice
PROC: 0D9670Z Drainage of Stomach with Drainage Device, Via Natural or Artificial Opening (ICD-10-PCS; 2019-08-28)
PROC: 02H633Z Insertion of Infusion Device into Right Atrium, Percutaneous Approach (ICD-10-PCS; 2019-08-30)
PROC: B548ZZA Ultrasonography of Superior Vena Cava, Guidance (ICD-10-PCS; 2019-08-30)
PROC: 3E0234Z Introduction of Serum, Toxoid and Vaccine into Muscle, Percutaneous Approach (ICD-10-PCS; principal; 2019-09-01)
DX: K56.609 Unspecified intestinal obstruction, unspecified as to partial versus complete obstruction (principal); E43 Unspecified severe protein-calorie malnutrition; R53.2 Functional quadriplegia; C19 Malignant neoplasm of rectosigmoid junction; R64 Cachexia; N18.4 Chronic kidney disease, stage 4 (severe); Z68.1 Body mass index [BMI] 19.9 or less, adult; E11.9 Type 2 diabetes mellitus without complications; F03.90 Unspecified dementia, unspecified severity, without behavioral disturbance, psychotic disturbance, mood disturbance, and anxiety; I12.9 Hypertensive chronic kidney disease with stage 1 through stage 4 chronic kidney disease, or unspecified chronic kidney disease; M06.9 Rheumatoid arthritis, unspecified; R62.7 Adult failure to thrive; L89.152 Pressure ulcer of sacral region, stage 2; E83.51 Hypocalcemia; D53.1 Other megaloblastic anemias, not elsewhere classified; D50.9 Iron deficiency anemia, unspecified; K56.7 Ileus, unspecified; Z23 Encounter for immunization; Z83.3 Family history of diabetes mellitus; Z80.0 Family history of malignant neoplasm of digestive organs
CPT/HCPCS: 36415; 71045; 74018; 74250; 80048; 80053; 81003; 82150; 82272; 82607; 82728; 82746; 82948; 83036; 83540; 83690; 83735; 83880; 84100; 84134; 84443; 85025; 85045; 85610; 85730; 87081; 90732; 93005; 99285; C1751; C9113; J1170; J1644; J1885; J2270; J2405; J2765; J7030; J7042; Q0092

== ENCOUNTER 2019-09-20 11:49 | Inpatient (IN) | payer OTHER, MEDICAID ==
[~2019-09-20] VITALS: Ht 152.4 cm; Wt 47.6 kg
[~2019-09-20 11:49] MED LIST changes: +ASCO500T45 PO; +DIL1I IVP; +DOCU-299 PO; -DOCU-300 PO; +LACT1TAB34 PO; +MEGACE PO; +METO5SOL24 IVP; +MOM PO; +MULT-1328 PO; +NA P133E RC; +POLY17PD46 PO; +QUEPKT PO; -SENN-73 PO; +SENN-74 PO; +SIME80TA22 PO; +Tpn Per Pharmacy MC; +ZINC220C12 PO
--- NOTE | 2019-09-20 11:49 | NUR ---
PT BIBA TO ER BED 10
[2019-09-20 11:57] VITALS: BP 108/74
--- NOTE | 2019-09-20 12:05 | NUR ---
64/M BIBA C/O CHRONIC ABD PAIN AND ABD DISTENSION WORSENING TODAY. HX METASTIC COLON CA AND SBO. LAST BM SEVERAL DAYS AGO. PAIN 10/10 AOX4 ABD GROSSLY DISTENDED AND NO BS UPON AUSCULTATION AT THIS TIME. TACHYCARDIC 110s AND TEMP 100.4 UPON TRIAGE BP STABLE; BEDRAILS UP X2; ERMD TO EVALUATE PATIENT.
--- NOTE | 2019-09-20 12:13 | NUR ---
DR. MELVIN AT BEDSIDE. PER DR. MELVIN, DO NOT NEED URINARY CATH OR URINE SAMPLE AT THIS TIME.
[2019-09-20] MEDS ORDERED: MORPHINE SULFATE 4 MG/ML SYR IVP ONE (12:15)
[2019-09-20] MEDS ORDERED: NACL 0.9% 1,000 ML IV ONE (12:15)
[2019-09-20 12:33] LABS: HEMOGLOBIN 8.8 g/dL (12.0-18.0); RED CELL DISTRIBUTION WIDTH 15.1 % (11.6-13.7)
[2019-09-20 12:38] LABS: MEAN CORPUSCULAR HEMOGLOBIN 30 pg (27-31); MEAN CORPUSCULAR HGB CONC 33 g/dL (33-37); PLATELET COUNT (AUTO) 200 K/uL (140-450); RED BLOOD CELL COUNT(AUTO) 2.97 MIL/uL (4.20-6.10); WHITE BLOOD COUNT (AUTO) 15.2 K/uL (4.8-10.8)
[2019-09-20 12:45] LABS: ANION GAP 14.8 (8-16); CARBON DIOXIDE 20.9 mmol/L (21-32); CREATININE 0.7 mg/dL (0.7-1.3); POTASSIUM 3.7 mmol/L (3.5-5.1)
[2019-09-20 12:49] LABS: EOSINOPHILS % (MANUAL) 1 % (0-4); LYMPHOCYTES % (MANUAL) 5 % (20-46); MONOCYTES % (MANUAL) 6 % (5-12)
[2019-09-20 12:52] LABS: ALBUMIN 1.8 g/dL (3.4-5.0); TOTAL BILIRUBIN 0.4 mg/dL (0.0-1.0)
--- NOTE | 2019-09-20 14:39 | NUR ---
PATIENT SLEEPING IN BED, RESPIRATIONS EVEN AND UNLABORED. FAMILY MEMBER AT BEDSIDE.
[2019-09-20] MEDS ORDERED: HYDROcodone/APAP 7.5/325 MG 1 TAB PO PRN (15:10)
[2019-09-20] MEDS ORDERED: DOCUSATE SODIUM 100 MG GELCAP PO PRN (15:10)
[2019-09-20] MEDS ORDERED: MORPHINE SULFATE 2 MG/ML SYR IVP PRN (15:10)
[2019-09-20] MEDS ORDERED: ACETAMINOPHEN 325 MG TAB PO PRN (15:10)
[2019-09-20] MEDS ORDERED: ONDANSETRON 4 MG/2 ML VIAL IM/IVP PRN (15:10)
--- NOTE | 2019-09-20 15:16 | NUR ---
XRAY AT BEDSIDE
[2019-09-20 15:50] LABS: PROTHROMBIN TIME 10.5 secs (10.8-13.4)
[2019-09-20 15:55] VITALS: BP 104/74
--- NOTE | 2019-09-20 15:55 | NUR ---
RECEIVE REPORT FROM ER NURSE, TORRES. PT IN STABLE CONDITION. PT COMPLAINING OF ABDOMINAL PAIN. TRANSFER PT ONTO BED, 3 PERSON ASSIST. PT COMPLAINED OF PAIN. DR. RUBIO TALKING TO PT AND FAMILY ABOUT POSSIBLE SURGERY. PT'S ABDOMEN VISIBLY DISTENDED. PICC RIGHT UPPER ARM PICC LINE IN PLACE, SKIN INTACT.
--- NOTE | 2019-09-20 15:55 | NUR ---
Patient will be admitted to care of Dr. Joya. Admited to TELE. Will go to room 108A. Belongings list completed. Report to ELMA GORDON AND SUDARSHAN GORDON.
[2019-09-20 16:11] LABS: CHOL/HDL RATIO 2.8 (1-4.5); MAGNESIUM 1.5 mg/dL (1.8-2.4); PHOSPHORUS 2.8 mg/dL (2.5-4.9); THYROID STIMULATING HORMONE 4.27 uIU/mL (0.34-3.74)
--- NOTE | 2019-09-20 16:19 | NUR ---
IN PT ROOM, NOTICE PT WAS TAPPING HIS CHEST. COPIER AND PRINTER FIELD TECHNICIAN CAME TO THE ROOM AND ASKED IF THE PT WAS ALRIGHT. COPIER AND PRINTER FIELD TECHNICIAN SHOWED ME THE CARDIAC STRIP OF THE PT, WHICH SHOWED PT WAS SINUS TACHYCARDIA AT 211 BPM. CHECKED ON PT AND HE WAS STABLE, PT WAS TALKING TO SISTER. HR WAS 114. PT WAS STABLE.
[2019-09-20] MEDS ORDERED: TPN PER PHARMACY MC PRN (16:20)
[2019-09-20] MEDS ORDERED: HYDROmorphone 1 MG/ML AMP IVP PRN ×2 (16:20→18:20)
[2019-09-20] MEDS ORDERED: MAG SULF 2000 MG/WATER PREMIX 50 ML IV ONE (16:20)
[2019-09-20] MEDS ORDERED: LORazepam 2 MG/ML VIAL IVP ONE (16:20)
[2019-09-20] MEDS ORDERED: SODIUM PHOSPHATE 118 ML ENEM RC SCH (16:20)
[2019-09-20] MEDS ORDERED: MAGNESIUM HYDROXIDE 2400 MG/30 ML UDC PO PRN (16:20)
[2019-09-20] MEDS: DEXT 5% / NACL 0.45% 1,000 ML IV SCH (16:30)
--- NOTE | 2019-09-20 16:45 | NUR ---
Medical record request faxed to [facility]. Awaiting reply.
[2019-09-20] MEDS: POLYETHYLENE GLYCOL 17 GM/PKT PO SCH ×2 (17:00→21:00)
[2019-09-20] MEDS: SENNA 8.6 MG TAB PO SCH (17:00)
--- NOTE | 2019-09-20 17:00 | NUR ---
MST charge nurse secured ICU bed for pt post-op per Dr Alonso request, confirmed with ICU charge nurse.
--- NOTE | 2019-09-20 17:20 | NUR ---
UNABLE TO GET ANY HISTORY, PT WENT TO OR. PT IS STABLE.
[2019-09-20] MEDS ORDERED: DEXAMETHASONE 4 MG/ML VIAL ONE (17:26)
[2019-09-20] MEDS ORDERED: NEOSTIGMINE 1:1000 10 MG/10 ML VIAL ONE (17:26)
[2019-09-20] MEDS ORDERED: SUCCINYLCHOLINE CHLORIDE 200 MG/10 ML VIAL IVP ONE (17:26)
[2019-09-20] MEDS ORDERED: ONDANSETRON 4 MG/2 ML VIAL ONE (17:26)
[2019-09-20] MEDS ORDERED: LIDOCAINE 2% 100 MG/5 ML SYR IVP ONE (17:26)
[2019-09-20] MEDS ORDERED: KETOROLAC 30 MG/ML VIAL ONE (17:26)
[2019-09-20] MEDS ORDERED: PROPOFOL 200 MG/20 ML VIAL IV ONE (17:26)
[2019-09-20] MEDS ORDERED: ROCURONIUM 50 MG/5 ML VIAL IV ONE (17:26)
[2019-09-20] MEDS ORDERED: GLYCOPYRROLATE 0.2 MG/ML VIAL ONE (17:26)
[2019-09-20] MEDS ORDERED: DESFLURANE 240 ML BTL INH ONE (17:26)
[2019-09-20] MEDS ORDERED: MIDAZOLAM 2 MG/2 ML VIAL ONE (17:38)
[2019-09-20] MEDS ORDERED: fentaNYL 0.05 MG/ML VIAL ONE (17:39)
[2019-09-20] MEDS: PIPERACILLIN/TAZOBACTAM 3.375 GM in DEXTROSE 5% 50 ML IV SCH ×2 (18:00→23:59)
[2019-09-20] MEDS ORDERED: ONDANSETRON 4 MG/2 ML VIAL IVP PRN (18:20)
--- NOTE | 2019-09-20 19:18 | NUR ---
Report given to Geraldo ICU nurse. Pt still at OR.
[2019-09-20] MEDS ORDERED: BUPIVACAINE-MPF/EPI 0.25% 30 ML VIAL INJ ONE (19:25)
[2019-09-20] MEDS ORDERED: HYDROmorphone PFS 2 MG/ML SYR ONE (19:44)
[2019-09-20 20:00] VITALS: BP 105/82
--- NOTE | 2019-09-20 20:00 | NUR ---
RECEIVED PT FROM OR NURSE. VSS. PT HAS EYES CLOSED AROUSABLE, DENIES PAIN @ THIS TIME. PT ON O2 VIA MASK, LUNGS CLEAR BILATERALLY. DENIES CP SOB. S1 S2, SINUS TACH ON MONITOR, +1 PALPABLE PULSES BILATERAL UPPER AND LOWER EXTREMITIES. NGT TO R NARES HIGH INTERMITTENT SUCTION. PT NPO @ THIS TIME. ABD SOFT NON DISTENDED. S/P COLON RESECTION WITH MID ABD INCISION WITH DOLORES. LLQ COLOSTOMY PRESENT, STOMA MOIST PINK. RIZVI CATH IN PLACE, CLEAR YELLOW URINE NOTED. SCDS IN PLACE. HOB> 30 DEGREES. CALL LIGHT WITHIN REACH, BED IN LOWEST POSITION.
[2019-09-20] MEDS: ASCORBIC ACID 500 MG TAB PO SCH (21:00)
[2019-09-20] MEDS: SIMETHICONE 80 MG TAB.CHEW PO SCH (21:00)
[2019-09-20] MEDS: DOCUSATE SODIUM 100 MG GELCAP PO SCH (21:00)
[2019-09-20] MEDS ORDERED: MORPHINE SULFATE 60 MG PO SCH (21:00)
[2019-09-20 22:00] VITALS: BP 95/69
[2019-09-20] MEDS: METOCLOPRAMIDE 10 MG/2 ML INJ VIAL IVP SCH (23:59)
[2019-09-21] VITALS (11 sets, daily range): BP systolic 90–116; BP diastolic 61–75
--- NOTE | 2019-09-21 00:30 | NUR ---
PT C/O 07/[address] GIBSON MADE AWARE. NEW ORDERS FOR PAIN MEDICATION SEE EMAR FOR DETAILS.
[2019-09-21] MEDS ORDERED: MORPHINE SULFATE 2 MG/ML SYR IVP PRN (00:45)
[2019-09-21] MEDS: HYDROmorphone 1 MG/ML AMP IVP PRN ×5 (00:55→22:44)
[2019-09-21] MEDS ORDERED: MAG SULF 2000 MG/WATER PREMIX 50 ML IV ONE (01:02)
[2019-09-21] MEDS ORDERED: KETOROLAC 30 MG/ML VIAL IM SCH (02:05)
[2019-09-21] MEDS ORDERED: KETOROLAC 30 MG/ML VIAL ONE (02:20)
--- NOTE | 2019-09-21 04:30 | NUR ---
AM CARE DONE, LINEN CHANGED. PT TURNED AND REPOSITIONED.
[2019-09-21] MEDS: SIMETHICONE 80 MG TAB.CHEW PO SCH ×3 (04:44→21:00)
[2019-09-21 05:57] LABS: BASOPHILS % (AUTO) 0.1 % (0.0-2.0); EOSINOPHILS % (AUTO) 0.1 % (0.0-4.0); HEMATOCRIT 23.1 % (36-52); HEMOGLOBIN 7.5 g/dL (12.0-18.0); LYMPHOCYTES # (AUTO) 0.4 K/uL (2.0-11.5); LYMPHOCYTES % (AUTO) 4.3 % (20.5-51.1); MEAN CORPUSCULAR HEMOGLOBIN 30 pg (27-31); MEAN CORPUSCULAR HGB CONC 33 g/dL (33-37); MEAN CORPUSCULAR VOLUME 91.3 fL (80-94); MONOCYTES # (AUTO) 0.6 K/uL (0.8-1.0); MONOCYTES % (AUTO) 5.9 % (1.7-9.3); NEUTROPHILS # (AUTO) 8.5 K/uL (1.8-7.7); NEUTROPHILS % (AUTO) 89.6 % (42.2-75.2); PLATELET COUNT (AUTO) 172 K/uL (140-450); RED BLOOD CELL COUNT(AUTO) 2.53 MIL/uL (4.20-6.10); RED CELL DISTRIBUTION WIDTH 15.3 % (11.6-13.7); WHITE BLOOD COUNT (AUTO) 9.4 K/uL (4.8-10.8)
[2019-09-21] MEDS: PIPERACILLIN/TAZOBACTAM 3.375 GM in DEXTROSE 5% 50 ML IV SCH ×3 (05:59→17:12)
[2019-09-21] MEDS: METOCLOPRAMIDE 10 MG/2 ML INJ VIAL IVP SCH ×3 (06:03→23:00)
[2019-09-21 06:43] LABS: ANION GAP 13.5 (8-16); CREATININE 0.8 mg/dL (0.7-1.3); POTASSIUM 4.5 mmol/L (3.5-5.1)
[2019-09-21 06:49] LABS: MAGNESIUM 2.3 mg/dL (1.8-2.4); PHOSPHORUS 3.5 mg/dL (2.5-4.9)
--- NOTE | 2019-09-21 07:34 | NUR ---
RECEIVED REPORT FROM TROLLEY COACH DRIVER RN. PT RESTING IN BED. A/O X3. VERBAL, ABLE TO MAKE NEEDS KNOWN. IN ROOM AIR. SPO2 98%. NO SOB OR RESPIRATORY DISTRESS NOTED. SR ON MONITOR. LUNGS CLEAR ON AUSCULTATION. PORT CATH NOTED ON RIGHT UPPER CHEST, SKIN INTACT. PICC LINE NOTED ON CHRISTY. INTACT LINE. FLUSHED. D5%0.45% NS INFUSING AT 120 ML. ABDOMEN FIRM AND TENDER. SURGICAL DRESSING IN MID ABDOMEN. DRESSING DRY AND INTACT. COLOSTOMY BAG ON LLQ WITH MINIMAL AMOUNT OF DISCHARGE. NG TUBE IN PLACE ATTACHED TO HIGH INTERMITTENT SUCTION. B/L PITTING EDEMA NOTED ON FEET. KEPT OFFLOADED PRESSURE AREA. NO C/O PAIN AT THIS TIME. HOB ELEVATED. BED IN LOW POSITION LOCKED. WILL CONTINUE TO MONITOR.
--- NOTE | 2019-09-21 07:34 | NUR ---
REPORT GIVEN TO DAY SHIFT FOR CONTINUITY OF CARE.
--- NOTE | 2019-09-21 08:00 | NUR ---
PT EVALUATED BY DR. HINDS. UPDATED PT STATUS. MADE AWARE OF HB 7.5, PITTING EDEMA ON B/L FEET, GASTRIC DRAINAGE. SAID TO HOLD MORNING PO MEDS AND LOVENOX FOR NOW. DR. VALDIVIA AWARE. WILL CARRY OUT ORDER.
[2019-09-21] MEDS: DEXT 5% / NACL 0.45% 1,000 ML IV SCH ×3 (08:03→17:12)
--- NOTE | 2019-09-21 08:05 | NUR ---
PT ENCOURAGED TO USE INCENTIVE SPIROMETER. UNABLE TO USE SPIROMETRY AT THIS TIME DUE TO PAIN.
[2019-09-21] MEDS: PANTOPRAZOLE 40 MG INJ VIAL IVP SCH (08:16)
[2019-09-21] MEDS: SENNA 8.6 MG TAB PO SCH ×3 (08:17→16:02)
[2019-09-21] MEDS: DOCUSATE SODIUM 100 MG GELCAP PO SCH ×2 (08:17→21:00)
[2019-09-21] MEDS: CHOLESTYRAMINE 4 GM/9 GM PKT PO SCH (08:17)
[2019-09-21] MEDS: POLYETHYLENE GLYCOL 17 GM/PKT PO SCH ×4 (08:17→21:00)
[2019-09-21] MEDS: LACTOBACILLUS RHAMNOSUS GG 1 EACH CAP PO SCH (08:17)
[2019-09-21] MEDS: ASCORBIC ACID 500 MG TAB PO SCH ×2 (08:18→21:00)
[2019-09-21] MEDS: ZINC SULF 220 MG CAP PO SCH (08:20)
[2019-09-21] MEDS ORDERED: NON-FORMULARY ITEM (Multivitamin with Minerals (Multivitamins with Minerals) 1 TAB) PO SCH (09:00)
[2019-09-21] MEDS: MEGESTROL 400 MG/10 ML UDC NG SCH (09:00)
[2019-09-21] MEDS ORDERED: MEGACE PO SCH (09:00)
[2019-09-21] MEDS: MULTIVITAMIN/MINERALS 1 TAB NGT SCH (09:00)
[2019-09-21] MEDS ORDERED: NON-FORMULARY ITEM (Lactobacillus Acidophilus (Acidophilus) 1 EACH) PO SCH (09:00)
[2019-09-21] MEDS ORDERED: ENOXAPARIN 30 MG/0.3 ML SYR SUBQ SCH (09:00)
[2019-09-21] MEDS ORDERED: KETOROLAC 30 MG/ML VIAL IM PRN (09:15)
--- NOTE | 2019-09-21 09:16 | NUR ---
PT EVALUATED BY DR. ROCHA. UPDATED PT STATUS. ORDER TO CONTINUE NPO INCLUDING MEDS AND HIGH INTERMITTENT SUCTION FOR NG-TUBE. NO NEW ORDER AT THIS TIME.
[2019-09-21] MEDS: KETOROLAC 30 MG/ML VIAL IVP PRN ×2 (10:59→18:14)
--- NOTE | 2019-09-21 11:09 | NUR ---
ORAL TEMPERATURE NOTED 99.3. DR. VALDIVIA MADE AWARE. ORDERED TO ADMINISTER TYLENOL SUPPOSITORY BEFORE BLOOD TRANSFUSION. WAITING FOR THE ORDER.
[2019-09-21] MEDS ORDERED: ACETAMINOPHEN 650 MG/20.3 ML UDC NG SCH (11:11)
[2019-09-21] MEDS ORDERED: ACETAMINOPHEN 650 MG SUPP RC SCH (11:12)
[2019-09-21] MEDS ORDERED: LORATADINE 10 MG TAB PO SCH (11:13)
[2019-09-21] MEDS ORDERED: diphenhydrAMINE 50 MG/ML VIAL IVP SCH (11:43)
--- NOTE | 2019-09-21 12:00 | NUR ---
EVALUATED BY DR. SALCEDO. NO NEW ORDER AT THIS TIME.
--- NOTE | 2019-09-21 12:10 | NUR ---
PT MADE AWARE OF BT AND EDUCATED ABOUT THE BT REACTION. PT VERBALIZED UNDERSTANDING. STARTED BT. T 98.7, HR 99 RR 14 SPO2 99% BP 90/63. IV SITE INTACT.
--- NOTE | 2019-09-21 12:19 | NUR ---
PT IS ON BLOOD TRANSFUSION AT THIS TIME. CALLED PHARMACY, PER PHARMACY NOT TO GIVE ZOSYN DURING BLOOD TRANSFUSION. GIVE 1800 ZOSYN SOON POSSIBLE . UNABLE TO GIVE 1200 ZOSYN AT THIS TIME.
--- NOTE | 2019-09-21 12:46 | NUR ---
NO BT REACTION NOTED AT THIS TIME. PT RESPONSIVE. DENIES PAIN. T 98.8 HR 94 SPO2 99% RR 14 BP 95/62. IV SITE INTACT.
[2019-09-21] MEDS: MORPHINE SULFATE 4 MG/ML SYR IVP PRN ×2 (13:45→20:17)
--- NOTE | 2019-09-21 14:25 | NUR ---
NO SOB OR RESPIRATORY DISTRESS NOTED. SEEN BY DR. SALCEDO. WILL FOLLOW UP ON ORDER. VS WNL. NO C/O PAIN AT THIS TIME.
--- NOTE | 2019-09-21 15:06 | NUR ---
ENDORSED TO EVAN PATEL. PT TAKEN TO THE FLOOR ACCOMPANIED BY EVAN PATEL, CHARGE NURSE DARRELL ON STABLE CONDITION.
--- NOTE | 2019-09-21 15:07 | NUR ---
RECEIVED BEDSIDE REPORT FROM GILMAR, ICU NURSE. PATIENT IS AWAKE, ALERT AND ORIENTEDX3. NO SIGNS OF DISTRESS. PATIENT IN BEDREST. FALL RISK PROTOCOL IN PLACE CHRISTY PICC LINE INFUSING BLOOD AT 100. R UPPER CHEST PAM CATH FOR CHEMO. BOTH CLEAN, DRY AND INTACT. S/P EXPLOR LAP SURGERY, COLOSTOMY AND RIZVI. TELE MONITOR ON PATIENT. ABLE TO MAKE NEEDS KNOWN. WILL CONTINUE TO MONITOR THE PATIENT,
--- NOTE | 2019-09-21 15:50 | NUR ---
BLOOD TRANSFUSION IS DONE. NO ADVERSE REACTIONS. WILL CONTINUE TO MONITOR
[2019-09-21] MEDS ORDERED: diphenhydrAMINE 50 MG/ML VIAL IVP PRN (15:55)
--- NOTE | 2019-09-21 17:04 | NUR ---
PATIENT IS SLEEPING. NO SIGNS OF DISTRESS. WILL CONTINUE TO MONITOR
--- NOTE | 2019-09-21 17:17 | NUR ---
ADMINISTERED MEDS. PATIENT TOLERATED WELL. WHEN ZOSYN IS DONE I WILL START SECOND UNIT OF BLOOD
--- NOTE | 2019-09-21 18:28 | NUR ---
WENT TO LAB TO FRAMEWORK DEVELOPER SECOND UNIT. LAB SAID THEY ONLY CROSSED MATCHED ON UNIT AND GIVE THEM 30 MINS TO GET THE BLOOD READY. HE SAID HE WILL CALL WHEN IT IS READY
--- NOTE | 2019-09-21 19:17 | NUR ---
GAVE BEDSIDE REPORT TO TIP BANDING MACHINE OPERATOR NURSE. PATIENT ENDORSED IN STABLE CONDITION. ENDORSED THAT BLOOD BANK WILL CALL WHEN SECOND UNIT IS READY
[2019-09-21 19:38] LABS: MEAN CORPUSCULAR HEMOGLOBIN 29 pg (27-31); MEAN CORPUSCULAR HGB CONC 33 g/dL (33-37); MEAN CORPUSCULAR VOLUME 88.1 fL (80-94); PLATELET COUNT (AUTO) 115 K/uL (140-450); RED BLOOD CELL COUNT(AUTO) 2.22 MIL/uL (4.20-6.10); RED CELL DISTRIBUTION WIDTH 18.6 % (11.6-13.7); WHITE BLOOD COUNT (AUTO) 8.5 K/uL (4.8-10.8)
--- NOTE | 2019-09-21 20:15 | NUR ---
DR. RUBIO VERBALLY ORDERED TO D/C THE NG; ORDER WAS IN SINCE 0700AM. D/C THE NGT, PATENT TOLERATED PROCEDURE, TOTAL OF 250 ML SINCE AM SHIFT DRAINED
[2019-09-21 20:24] LABS: HEMATOCRIT 19.5 % (36-52); HEMOGLOBIN 6.3 g/dL (12.0-18.0)
--- NOTE | 2019-09-21 21:01 | NUR ---
WENT TO LAB RETRIEVED BLOOD, VERIFIED W/ LAB TO IDENTIFY THE RIGHT BLOOD. RELEASED ASEPTICALLY Addendum: 09/21/19 at 2313 by Codie Benavides RN WRONG TIME
--- NOTE | 2019-09-21 21:04 | NUR ---
INFORMED DR. RUBIO THAT ICU IS FULL PER FARA, BIODIESEL PLANT MANAGER AND WE DON'T HAVE A BED AVAILABLE. WAS INFORMED THROUGH OR NURSE Addendum: 09/22/19 at 0041 by Codie Benavides RN RE: TRANSFER TO ICU
--- NOTE | 2019-09-21 21:45 | NUR ---
VS TAKEN BEFORE BT; CHECKED IV SITE PATENT ON THE RIGHT PICC- DOUBLE LUMEN
--- NOTE | 2019-09-21 22:05 | NUR ---
STARTED BLOOD TRANSFUSION; EXPLAINED THE PROCEDURE TO THE PT. EXPLAINED THE ADVERSE EFFECTS OF BT TO PATIENT AND WILL MONITOR. Addendum: 09/21/19 at 2332 by Codie Benavides RN STARTED THE 2ND UNIT OF RED BLOOD CELLS
--- NOTE | 2019-09-21 22:10 | NUR ---
WENT TO LAB RETRIEVED BLOOD, VERIFIED W/ LAB TO IDENTIFY THE RIGHT BLOOD. RELEASED ASEPTICALLY
--- NOTE | 2019-09-21 22:15 | NUR ---
D51/2 NS PLACED ON 10 CC/HR WILL BLOOD TRANFUSION ONGOING NOW
[2019-09-21 23:31] LABS: LYMPHOCYTES % (MANUAL) 5 % (20-46); MONOCYTES % (MANUAL) 1 % (5-12)
[2019-09-22] VITALS: BP 115/80
[2019-09-22] MEDS: PIPERACILLIN/TAZOBACTAM 3.375 GM in DEXTROSE 5% 50 ML IV SCH ×5 (00:10→23:30)
[2019-09-22] MEDS: KETOROLAC 30 MG/ML VIAL IVP PRN ×3 (00:51→22:45)
[2019-09-22] MEDS: DEXT 5% / NACL 0.45% 1,000 ML IV SCH ×3 (01:00→17:46)
--- NOTE | 2019-09-22 01:10 | NUR ---
PT FINISHED DIALYSIS WITH 1.3 LITERS TAKEN OUT ; VS =108/60; 88; TEMP 98; RR 25; INFORMED RT TO CHECK ON SOB
--- NOTE | 2019-09-22 01:30 | NUR ---
FINISHED THE 2ND UNIT OF BLOOD AT THIS TIME; WILL MONITOR FOR SIDE EFFECTS;
--- NOTE | 2019-09-22 01:45 | NUR ---
VITAL SIGNS POST BT 98.3; 83;17;122/73; 0/10 PT SLEEPING BUT EASILY AROUSABLE
[2019-09-22] MEDS: HYDROmorphone 1 MG/ML AMP IVP PRN ×5 (03:40→19:37)
[2019-09-22 03:44] LABS: HEMATOCRIT 27.9 % (36-52); HEMOGLOBIN 9.4 g/dL (12.0-18.0); MEAN CORPUSCULAR HEMOGLOBIN 29 pg (27-31); MEAN CORPUSCULAR HGB CONC 34 g/dL (33-37); MEAN CORPUSCULAR VOLUME 85.8 fL (80-94); PLATELET COUNT (AUTO) 144 K/uL (140-450); RED BLOOD CELL COUNT(AUTO) 3.25 MIL/uL (4.20-6.10); RED CELL DISTRIBUTION WIDTH 17.6 % (11.6-13.7); WHITE BLOOD COUNT (AUTO) 10.9 K/uL (4.8-10.8)
[2019-09-22 04:25] LABS: EOSINOPHILS % (MANUAL) 1 % (0-4); LYMPHOCYTES % (MANUAL) 9 % (20-46); MONOCYTES % (MANUAL) 2 % (5-12)
[2019-09-22] MEDS: SIMETHICONE 80 MG TAB.CHEW PO SCH ×3 (05:00→20:50)
[2019-09-22] MEDS: LEVOTHYROXINE 0.025 MG TAB PO SCH (06:05)
[2019-09-22] MEDS: METOCLOPRAMIDE 10 MG/2 ML INJ VIAL IVP SCH ×3 (06:08→20:53)
[2019-09-22] MEDS: MORPHINE SULFATE 4 MG/ML SYR IVP PRN (06:25)
--- NOTE | 2019-09-22 07:05 | NUR ---
RECEIVED PT FROM DRAGLINE MECHANIC NURSEREHTT, PT IS AWAKE AND SEATED ON TH BED WITH SIDE RAILS UP AND CALL LIGHT WITHIN REACH, PT HAS A RT UA PICC LINE, DOUBLE LUMEN WITH D5 1/2 NS AT 120ML/HR, RIZVI CATHETER IN PLACE, 26 DOLORES INTACT NO DRAINAGE FOR S/P EX-LAP, PT C/O PAIN RATE OF 8/10, WILL MEDICATE, ON ROOM AIR, AOX4, BEDREST, NO SIGN OF DISTRESS NOTED AND WILL CONTINUE TO MONITOR.
[2019-09-22] MEDS ORDERED: VANCOMYCIN PER PHARMACY MC PRN (07:30)
[2019-09-22 07:36] LABS: ANION GAP 13.3 (8-16); CARBON DIOXIDE 20.1 mmol/L (21-32); CREATININE 0.8 mg/dL (0.7-1.3); POTASSIUM 3.4 mmol/L (3.5-5.1)
[2019-09-22 07:50] LABS: MAGNESIUM 1.9 mg/dL (1.8-2.4); PHOSPHORUS 2.3 mg/dL (2.5-4.9)
[2019-09-22 08:00] VITALS: BP 101/67
[2019-09-22 08:07] LABS: T4 (THYROXINE) 8.9 ug/dL (4.5-12.0)
[2019-09-22] MEDS: ASCORBIC ACID 500 MG TAB PO SCH ×2 (09:00→20:50)
[2019-09-22] MEDS: POLYETHYLENE GLYCOL 17 GM/PKT PO SCH ×4 (09:00→20:56)
[2019-09-22] MEDS: LACTOBACILLUS RHAMNOSUS GG 1 EACH CAP PO SCH (09:00)
[2019-09-22] MEDS: MEGESTROL 400 MG/10 ML UDC NG SCH (09:00)
[2019-09-22] MEDS: DOCUSATE SODIUM 100 MG GELCAP PO SCH ×2 (09:00→20:56)
[2019-09-22] MEDS: ZINC SULF 220 MG CAP PO SCH (09:00)
[2019-09-22] MEDS: SENNA 8.6 MG TAB PO SCH ×3 (09:00→17:00)
[2019-09-22] MEDS: MULTIVITAMIN/MINERALS 1 TAB NGT SCH (09:00)
[2019-09-22] MEDS ORDERED: FLUCONAZOLE 400 MG/NS PREMIX 200 ML IV SCH (09:00)
[2019-09-22] MEDS: CHOLESTYRAMINE 4 GM/9 GM PKT PO SCH (09:00)
--- NOTE | 2019-09-22 09:03 | NUR ---
PATIENT HAS BEEN SCREENED AND CATEGORIZED HIGH NUTRITION RISK. PATIENT WILL BE SEEN WITHIN 1-2 DAYS OF ADMISSION. 09/22/[address]
[2019-09-22] MEDS ORDERED: TPN PER PHARMACY MC PRN (09:30)
[2019-09-22] MEDS: VANCOMYCIN 500 MG in DEXTROSE 5% 100 ML IV SCH ×2 (09:40→20:49)
[2019-09-22] MEDS ORDERED: POTASSIUM CHLORIDE 10 MEQ TABER PO SCH (10:00)
[2019-09-22] MEDS ORDERED: SODIUM PHOS / POTASSIUM PHOS 1 PKT PDR PO SCH (10:00)
--- NOTE | 2019-09-22 10:23 | NUR ---
SPOKE WITH DR. RUBIO OVER THE PHONE AND MADE A TELEPHONE ORDER THAT HE STILL WANTS THE PATIENT ON STRICT NPO. DR. RUBIO WAS ASKED IF MORNING MEDICATIONS CAN TO GIVEN AND ENUMERATED THE MORNING MEDICATIONS, DR. RUBIO JUST WANTS PROTONIX IV, THERAGRAN MULTIVITAMINS, CULTURELLE, QUESTRAN, VITAMIN C AND ZINC SULFATE. AND SAID NOT TO GIVE COLACE, MEGACE, SENNA, MIRALAX. DR. ANDREWS WAS INFORMED WELL.
[2019-09-22] MEDS: PANTOPRAZOLE 40 MG INJ VIAL IVP SCH (10:47)
[2019-09-22] MEDS: FLUCONAZOLE 400 MG/NS PREMIX 200 ML IV SCH (11:10)
--- NOTE | 2019-09-22 11:15 | NUR ---
HELD AM MEDICATIONS PER DR. OMER, WAITING FOR SWALLOW EVALUATION. GIVEN DILAUDID FOR 9/10 PAIN AND PROTONIX VIA IVP. EXPLAINED TO PATIENT INDICATION AND SIDE EFFECTS. VERBALIZED UNDERSTANDING. WILL CONTINUE TO MONITOR.
[2019-09-22 12:00] VITALS: BP 104/64
[2019-09-22] MEDS ORDERED: KCL 20 MEQ/WATER INJ PREMIX 100 ML IV SCH (12:00)
[2019-09-22] MEDS: CHLORHEXADINE GLUC 2% CLOTH TP SCH (13:00)
--- NOTE | 2019-09-22 13:15 | NUR ---
*S.T. Bedside swallow eval completed* See report. Pt presents with moderate oral difficulty managing solids due to being edentulous. Pt reported that he usually eats with dentures but stated that he does not have family or friend who can bring his dentures to hospital. Intermittent throat clear after swallows that pt denied was related to swallowing and due to congestion. Voice clear after swallows and no other s/s aspiration observed. Recommend: 1) Advance to pureed diet, thin liquids okay. 2) P.O. meds whole okay as tolerated. 3) Advance to mechanical soft ground diet ONLY if pt's dentures are made available during this admission. 4) Nsg to assist w/ tray set up to promote self-feeding due to abd pain and trunk instability. No further tx indicated at this time as pt appears to be functioning at his reported baseline level. DC to nsg care. Endorsed to EVAN Segundo. Time [id number]
--- NOTE | 2019-09-22 13:18 | NUR ---
Doll Wig Hackler Note: Basic Screen: Yes High Risk DC Screen Yes Name: SHAHRIAR ALFONSO Home Relationship: SISTER Pre-Admission Living Arrangements: SNF Healthcare Decision Maker: Next of Kin Other: SISTER - SHAHRIAR ALFONSO [phone] Advance Directive No Discipline: Case Mgt/Social Svcs Tentative Discharge Plan/Destination: No Needs Identified Tentative Discharge Plan Summary: Patient is a 64-year-old female admitted for pain management. 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 Patient was admitted from [facility]. SW contacted Edshamika from admissions at [facility]. Per Ricardo, patient is long term and currently on a bed hold. Ricardo stated that patient has no advanced directive on file and patient's healthcare decision maker is sister Shahriar Alfonso [phone]. Tentative discharge plan for patient is to return to [facility]. No further needs identified. Signature: IRVING Borrero Date: Sep 22, 2019 Time: 11:34
--- NOTE | 2019-09-22 13:20 | NUR ---
PT IS OFF THE UNIT FOR A CT OF TGHE ABDOMEN WITHOUT CONTRAST.
--- NOTE | 2019-09-22 13:49 | NUR ---
DC PLANNIN YRS OLD MALE PATIENT ADMITTED FROM [facility] WITH A DX OF PAIN MANAGEMENT , SEPSIS DUE TO ASPIRATION PNA VS COLON OBSTRUCTION. PT HAS A HX OF STAGE IV COLON CA METASTASIZE TO LIVER SHOWN ON CT ABD . ADMINISTER IVF , ZOSYN , NGT TO INTERMITTENT SUCTION AND DR RUBIO CONSULT FOR POSS DIVERTING COLOSTOMY . BLOOD AND URINE CULTURE SENT TO LAB. DC PLAN TO GO BACK TO [facility] WHEN STABLE. CM TO FOLLOW Addendum: 09/24/19 at 1415 by Yvonne Amaral CM DC PLANNING: CONTINUING VANCO AND ZOSYN IVPB PENDING URINE AND PICC LINE TIP CULTURE . KATY JONES CONTINUE WITH WEANING OF OXYGEN , WAITING FOR ID DR CARRILLO CONSULTATION . Addendum: 09/29/19 at 1109 by Yvonne Amaral DC PLANNING PT HAS A DC ORDER TO GO BACK [place] [facility] [place] CALLED [facility] SPOKE WITH TOSHA WORTHINGTON PT AND PT CAN GO TO ROOM 43C . ARRANGED TRANSPORT WITH LAURENCE Mcbride WORK CHECKER TIME 4 PM. Addendum: 09/29/19 at 1140 by Yvonne Amaral CM DC PLANNING ARRANGED TRANSPORT WITH [employer] WORK CHECKER TIME 2:30 PM NOTIFIED ALEN GORDON
[2019-09-22] MEDS ORDERED: POTASSIUM CHLORIDE 40 MEQ, LIDOCAINE MPF 1% 25 MG in NACL 0.9% 250 ML IV SCH (14:00)
[2019-09-22] MEDS: MUPIROCIN CA NASAL 2% 1GM TUBE NS SCH (14:10)
--- NOTE | 2019-09-22 14:30 | NUR ---
ECHO IS BEING DONE TO PT NOW.
--- NOTE | 2019-09-22 14:52 | NUR ---
09/22/19 RD INITIAL ASSESSMENT COMPLETED PLEASE REFER TO NUTRITION ASSESSMENT UNDER CARE ACTIVITY FOR ESTIMATED NUTRITIONAL NEEDS. 1. CONTINUE NPO AND TPN 2. GRADUALLY INCREASED TPN TO MEET AT LEAST 75% OF ESTIMATED KCAL AND PROTEIN, 1440 KCAL AND 58 GM PROTEIN. 3. IF/WHEN PT IS MEDICALLY STABLE TO ADVANCE TO PO DIET RECOMMEND A PUREE DIET WITH THIN LIQUIDS PER SWALLOW EVALUATION RESULTS 4. PROVIDE MALNUTRITION EDUCATION 5. RD TO FOLLOW-UP 2-3 DAYS, HIGH RISK ALLISON DAN RD
--- NOTE | 2019-09-22 15:21 | NUR ---
PT WAS GIVEN POTASSIUM RIDER NOW VIA IV FOR THE K LEVEL OF 3.4. , C/O PAIN RATE OF 10/10, PAIN MEDICATION WAS GIVEN VIA IV PUSH.WILL MONITOR PT
[2019-09-22 16:00] VITALS: BP 112/68
[2019-09-22 18:44] LABS: BASOPHILS % (AUTO) 0.1 % (0.0-2.0); EOSINOPHILS # (AUTO) 0.1 K/uL (0-0.4); EOSINOPHILS % (AUTO) 0.9 % (0.0-4.0); HEMATOCRIT 29.9 % (36-52); HEMOGLOBIN 9.6 g/dL (12.0-18.0); LYMPHOCYTES # (AUTO) 0.8 K/uL (2.0-11.5); LYMPHOCYTES % (AUTO) 6.6 % (20.5-51.1); MEAN CORPUSCULAR HEMOGLOBIN 28 pg (27-31); MEAN CORPUSCULAR HGB CONC 32 g/dL (33-37); MEAN CORPUSCULAR VOLUME 86.6 fL (80-94); MONOCYTES # (AUTO) 0.5 K/uL (0.8-1.0); MONOCYTES % (AUTO) 4.3 % (1.7-9.3); NEUTROPHILS # (AUTO) 10.6 K/uL (1.8-7.7); NEUTROPHILS % (AUTO) 88.1 % (42.2-75.2); PLATELET COUNT (AUTO) 161 K/uL (140-450); RED BLOOD CELL COUNT(AUTO) 3.45 MIL/uL (4.20-6.10); RED CELL DISTRIBUTION WIDTH 18.1 % (11.6-13.7)
--- NOTE | 2019-09-22 19:10 | NUR ---
ENDORSED PT TO RESOURCE MANAGER NURSE YOLANDE FOR CONTINUITY OF CARE.
--- NOTE | 2019-09-22 19:11 | NUR ---
Received endorsement from AM shift RN; patient A/Ox4, able to make needs known, Barbadian speaking, non-ambulatory. Patient watching TV; introduced self, updated board. No SOB or distress noted, on room air. IV site noted on right upper arm, PICC line double lumen running IVF at 120mL/hr. and right chest Port-A-Cath. Patient s/p exploratory laparotomy, 26 mallory noted on midline abdomen. Colostomy site noted on abdomen. Bed in the lowest position, call light within reach. Initial assessment done. Will continue to monitor.
[2019-09-22 20:00] VITALS: BP 104/67
--- NOTE | 2019-09-22 20:40 | NUR ---
Vitals taken, no distress noted.
--- NOTE | 2019-09-22 21:35 | NUR ---
Due meds given, tolerated well.
--- NOTE | 2019-09-22 23:55 | NUR ---
Vitals taken, no SOB or distress noted.
[2019-09-23] VITALS: BP 108/69
[2019-09-23] MEDS: DEXT 5% / NACL 0.45% 1,000 ML IV SCH (01:50)
[2019-09-23] MEDS: HYDROmorphone 1 MG/ML AMP IVP PRN ×5 (01:50→21:49)
--- NOTE | 2019-09-23 02:07 | NUR ---
Checks made; patient resting comfortably, visible chest rise and fall noted.
[2019-09-23 04:00] VITALS: BP 94/64
--- NOTE | 2019-09-23 04:25 | NUR ---
Vitals taken; no distress noted. Patient resting comfortably, visible chest rise and fall noted.
[2019-09-23] MEDS: PIPERACILLIN/TAZOBACTAM 3.375 GM in DEXTROSE 5% 50 ML IV SCH ×3 (05:02→18:14)
[2019-09-23] MEDS: SIMETHICONE 80 MG TAB.CHEW PO SCH ×3 (05:02→20:48)
[2019-09-23] MEDS: METOCLOPRAMIDE 10 MG/2 ML INJ VIAL IVP SCH ×3 (05:03→20:48)
[2019-09-23] MEDS: KETOROLAC 30 MG/ML VIAL IVP PRN (05:04)
[2019-09-23] MEDS: LEVOTHYROXINE 0.025 MG TAB PO SCH (05:46)
--- NOTE | 2019-09-23 06:27 | NUR ---
Vitals stable, due meds given. Will endorse to AM shift RN for continuity of care.
--- NOTE | 2019-09-23 07:00 | NUR ---
RECEIVED PT FROM SCRIP CLERK NURSEYOLANDE, PT IS AWAKE AND ,CONCHITA ON THE BED WITH SIDE RAILS UP AND CALL LIGHT WITHIN REACH, FALL AND SAFETY PRECAUTION INITIATED, BED IN LOW POSITION AND ACTIVATED THE ALARM, PT HAS A RT UA PICC LINE WITH DOUBLE LUMEN, ONE LUMEN WITH D5 1/2 NS INFUSING AT 120ML/HR, PT OCAMPO A COLOSTOMY AND RIZVI CATHETER IN PLACE, PT C/O PAIN RATE OF 8/10 ON THE ABDOMEN AND 26 DOLORES INTACT AND NO DRAINAGE NOTED, WILL MEDICATE AND CONTINUE TO MONITOR PT.
[2019-09-23 08:00] VITALS: BP 112/65
[2019-09-23 08:03] LABS: BASOPHILS % (AUTO) 0.1 % (0.0-2.0); EOSINOPHILS # (AUTO) 0.1 K/uL (0-0.4); EOSINOPHILS % (AUTO) 1.1 % (0.0-4.0); HEMATOCRIT 32.3 % (36-52); HEMOGLOBIN 10.4 g/dL (12.0-18.0); LYMPHOCYTES # (AUTO) 0.8 K/uL (2.0-11.5); LYMPHOCYTES % (AUTO) 6.5 % (20.5-51.1); MEAN CORPUSCULAR HEMOGLOBIN 28 pg (27-31); MEAN CORPUSCULAR HGB CONC 32 g/dL (33-37); MEAN CORPUSCULAR VOLUME 86.2 fL (80-94); MONOCYTES # (AUTO) 0.6 K/uL (0.8-1.0); MONOCYTES % (AUTO) 4.6 % (1.7-9.3); NEUTROPHILS # (AUTO) 11.1 K/uL (1.8-7.7); NEUTROPHILS % (AUTO) 87.7 % (42.2-75.2); PLATELET COUNT (AUTO) 192 K/uL (140-450); RED BLOOD CELL COUNT(AUTO) 3.75 MIL/uL (4.20-6.10); WHITE BLOOD COUNT (AUTO) 12.7 K/uL (4.8-10.8)
[2019-09-23 08:11] LABS: ANION GAP 11.8 (8-16); CARBON DIOXIDE 22.7 mmol/L (21-32); CREATININE 0.8 mg/dL (0.7-1.3); POTASSIUM 3.5 mmol/L (3.5-5.1)
[2019-09-23 08:21] LABS: MAGNESIUM 1.6 mg/dL (1.8-2.4); PHOSPHORUS 1.8 mg/dL (2.5-4.9)
[2019-09-23] MEDS: DOCUSATE SODIUM 100 MG GELCAP PO SCH ×2 (09:00→20:48)
[2019-09-23] MEDS: MULTIVITAMIN/MINERALS 1 TAB NGT SCH (09:00)
[2019-09-23] MEDS: MEGESTROL 400 MG/10 ML UDC NG SCH (09:00)
[2019-09-23] MEDS: POLYETHYLENE GLYCOL 17 GM/PKT PO SCH ×4 (09:00→20:49)
[2019-09-23] MEDS: SENNA 8.6 MG TAB PO SCH ×3 (09:00→17:00)
--- NOTE | 2019-09-23 09:10 | NUR ---
PATIENT IS SLEEPING AT THIS TIME. NO SIGNS OF DISTRESS NOTED. WILL CONTINUE TO MONITOR. CALL LIGHT WITHIN REACH. BED IN LOW POSITION
[2019-09-23] MEDS: PANTOPRAZOLE 40 MG INJ VIAL IVP SCH (09:43)
[2019-09-23] MEDS: CHOLESTYRAMINE 4 GM/9 GM PKT PO SCH (09:45)
[2019-09-23] MEDS: ASCORBIC ACID 500 MG TAB PO SCH ×2 (09:46→20:48)
[2019-09-23] MEDS: ZINC SULF 220 MG CAP PO SCH (09:46)
[2019-09-23] MEDS: LACTOBACILLUS RHAMNOSUS GG 1 EACH CAP PO SCH (09:46)
[2019-09-23] MEDS ORDERED: MAG SULF 2000 MG/WATER PREMIX 50 ML IV SCH (10:00)
[2019-09-23] MEDS ORDERED: SODIUM PHOSPHATE 15 MMOLE in NACL 0.9% 250 ML IV SCH (10:00)
[2019-09-23] MEDS ORDERED: VANCOMYCIN 750 MG in DEXTROSE 5% 250 ML IV SCH (10:30)
--- NOTE | 2019-09-23 11:23 | NUR ---
PATIENT IS WATCHING TV AT THIS TIME. NO COMPLAINTS OF PAIN. NO DISTRESS NOTED. RESPIRATIONS EVEN AND UNLABORED. COUGHING NON-PRODUCTIVELY AND INTERMITTENTLY. WILL CONTINUE TO MONITOR.
[2019-09-23 12:00] VITALS: BP 108/71
--- NOTE | 2019-09-23 12:41 | NUR ---
PT WAS CLEANED AND REPOSITIONED NOW, STOOL AMOUNT IS 100ML AND IN SEMI-LIQUID FORM.
[2019-09-23] MEDS: CHLORHEXADINE GLUC 2% CLOTH TP SCH (13:00)
[2019-09-23] MEDS: MUPIROCIN CA NASAL 2% 1GM TUBE NS SCH (13:55)
[2019-09-23] MEDS: FLUCONAZOLE 400 MG/NS PREMIX 200 ML IV SCH (13:57)
--- NOTE | 2019-09-23 13:57 | NUR ---
GIVEN IVPB DIFLUCAN, REGLAN, BACTROBAN. EXPLAINED TO PATIENT INDICATION AND SIDE EFFECTS. VERBALIZED UNDERSTANDING. WILL CONTINUE TO MONITOR. BED IN LOW POSITION. CALL LIGHT WITHIN REACH
[2019-09-23 16:00] VITALS: BP 108/71
--- NOTE | 2019-09-23 16:20 | NUR ---
GIVEN ZOSYN VIA IVPB. EXPLAINED TO PATIENT THE PURPOSE AND SIDE EFFECTS. VERBALIZED UNDERSTANDING. PATIENT IS WATCHING TV AT THIS TIME. DENIES PAIN. NO DISTRESS NOTED. WILL CONTINUE TO MONITOR. CALL LIGHT WITHIN REACH. BED IN LOW POSITION. SIDE RAILS UP X2. WILL CONTINUE TO MONITOR.
[2019-09-23] MEDS: NACL 0.9% 1,000 ML IV SCH (16:30)
--- NOTE | 2019-09-23 17:00 | NUR ---
PT WAS CLEANED AND REPOSITIONED NOW.
--- NOTE | 2019-09-23 19:25 | NUR ---
ENDORSED PT TO KAIAKO KURA KAUPAPA MAORI NURSES, SAIDA FOR CONTINUITY OF CARE.
--- NOTE | 2019-09-23 19:30 | NUR ---
RECEIVED FROM AM RN IN BED AWAKE AND ALERT. WATCHING TV. ABLE TO VERBALIZE NEEDS WELL IN YI. CARE PLANS FOR THE NIGHT DISCUSSED WITH HIM. CALL LIGHT BY BEDSIDE. ENCOURAGED TO CALL FOR ANY HELP HE MAY NEED. "OK" COLOSTOMY AND RIZVI CATHETER IN PLACE. DENIES PAIN AT THIS TIME. TELEMETRY MONITORING. PICC LINE IN PLACE AND NO INFILTRATION NOTED.
[2019-09-23 19:59] VITALS: BP 112/70
--- NOTE | 2019-09-23 21:45 | NUR ---
PT. WATCHING TV AND AWAKE. ABLE TO VERBALIZE NEEDS WELL. NO COMPLAINTS AT THIS TIME.
[2019-09-23] MEDS: VANCOMYCIN 750 MG in DEXTROSE 5% 250 ML IV SCH (21:56)
[2019-09-24] VITALS: BP 110/73
[2019-09-24] MEDS: PIPERACILLIN/TAZOBACTAM 3.375 GM in DEXTROSE 5% 50 ML IV SCH ×5 (00:34→23:54)
[2019-09-24] MEDS: HYDROmorphone 1 MG/ML AMP IVP PRN ×7 (01:34→23:54)
--- NOTE | 2019-09-24 03:34 | NUR ---
SLEEPING. MEDICATED WITH DILAUDID IVP FOR PAIN PRN. ABLE TO VERBALIZE NEEDS WELL. A/O X 4. TELEMETRY MONITORING. CALL LIGHT WITH IN REACH.
[2019-09-24 04:47] VITALS: BP 113/76
--- NOTE | 2019-09-24 04:59 | NUR ---
PT. AWAKE AND REQUESTED FOR DILAUDID PRN. MEDICATED ORDERED. ABLE TO VERBALIZE NEEDS WELL. PICC LINE PORTS FLUSHED WITH NS. TELEMETRY MONITORING.
[2019-09-24] MEDS: SIMETHICONE 80 MG TAB.CHEW PO SCH ×3 (05:47→20:11)
[2019-09-24] MEDS: LEVOTHYROXINE 0.025 MG TAB PO SCH (05:47)
[2019-09-24] MEDS: METOCLOPRAMIDE 10 MG/2 ML INJ VIAL IVP SCH ×3 (05:47→20:11)
--- NOTE | 2019-09-24 06:37 | NUR ---
SLEEPING AT THIS TIME. NO COMPLAINTS DONE. ABLE TO VERBALIZE NEEDS WELL. CALL LIGHT WITH IN REACH. TELEMETRY MONITORING. NO NOTED BLEEDING TO SURGICAL SITE IN ABDOMEN.
[2019-09-24 06:53] LABS: BASOPHILS % (AUTO) 0.2 % (0.0-2.0); EOSINOPHILS # (AUTO) 0.3 K/uL (0-0.4); EOSINOPHILS % (AUTO) 2.1 % (0.0-4.0); HEMOGLOBIN 10.5 g/dL (12.0-18.0); LYMPHOCYTES % (AUTO) 8.4 % (20.5-51.1); MEAN CORPUSCULAR HEMOGLOBIN 28 pg (27-31); MEAN CORPUSCULAR HGB CONC 32 g/dL (33-37); MEAN CORPUSCULAR VOLUME 86.7 fL (80-94); MONOCYTES # (AUTO) 0.7 K/uL (0.8-1.0); MONOCYTES % (AUTO) 5.8 % (1.7-9.3); NEUTROPHILS % (AUTO) 83.5 % (42.2-75.2); PLATELET COUNT (AUTO) 209 K/uL (140-450); RED BLOOD CELL COUNT(AUTO) 3.81 MIL/uL (4.20-6.10); RED CELL DISTRIBUTION WIDTH 17.8 % (11.6-13.7)
[2019-09-24 06:56] LABS: ANION GAP 14.5 (8-16); CARBON DIOXIDE 19.1 mmol/L (21-32); CREATININE 0.8 mg/dL (0.7-1.3); POTASSIUM 3.6 mmol/L (3.5-5.1)
[2019-09-24 07:04] LABS: PHOSPHORUS 2.9 mg/dL (2.5-4.9)
--- NOTE | 2019-09-24 07:59 | NUR ---
RECEIVED BEDSIDE REPORT FROM PM RN PT APPEARS STABLE AND IN NO APPARENT DISTRESS ALL SAFETY MEASURES ARE IN PLACE, RIZVI CATH IN PLACE. PT HAS RIGHT UPPER ARM PICC LINE. AND LEFT SIDE COLOSTOMY WILL CONTINUE TO MONITOR.
[2019-09-24 08:25] VITALS: BP 107/53
[2019-09-24] MEDS: DOCUSATE SODIUM 100 MG GELCAP PO SCH ×2 (08:25→20:11)
[2019-09-24] MEDS: ASCORBIC ACID 500 MG TAB PO SCH ×2 (08:25→20:11)
[2019-09-24] MEDS: MULTIVITAMIN/MINERALS 1 TAB NGT SCH (08:25)
[2019-09-24] MEDS: ZINC SULF 220 MG CAP PO SCH (08:26)
[2019-09-24] MEDS: POLYETHYLENE GLYCOL 17 GM/PKT PO SCH ×4 (08:26→20:11)
[2019-09-24] MEDS: LACTOBACILLUS RHAMNOSUS GG 1 EACH CAP PO SCH (08:26)
[2019-09-24] MEDS: SENNA 8.6 MG TAB PO SCH ×3 (08:26→17:55)
[2019-09-24] MEDS: PANTOPRAZOLE 40 MG INJ VIAL IVP SCH (08:27)
[2019-09-24] MEDS: MEGESTROL 400 MG/10 ML UDC NG SCH (08:27)
[2019-09-24] MEDS: CHOLESTYRAMINE 4 GM/9 GM PKT PO SCH (08:27)
--- NOTE | 2019-09-24 08:54 | NUR ---
CLAMPED RIZVI CATH WILL COLLECT URINE SPECIMEN IN ONE HOUR
[2019-09-24] MEDS: NACL 0.9% 1,000 ML IV SCH (09:10)
[2019-09-24] MEDS ORDERED: ALBUTEROL SULFATE/IPRATROPIU 3 ML SOL IH PRN (09:40)
[2019-09-24] MEDS: VANCOMYCIN 750 MG in DEXTROSE 5% 250 ML IV SCH ×2 (11:01→22:00)
--- NOTE | 2019-09-24 11:22 | NUR ---
REMOVED PT PICC LINE AND TOOK TO LAB FOR CULTURE. PER DR. OMER ORDERS,
[2019-09-24 12:35] VITALS: BP 104/68
[2019-09-24 12:54] LABS: APPEARANCE,URINE HAZY (CLEAR); BILIRUBIN,URINE NEGATIVE (NEGATIVE); BLOOD, URINE 1+ (NEGATIVE); COLOR,URINE YELLOW (YELLOW); LEUKOCYTE ESTERASE ,URINE NEGATIVE (NEGATIVE); NITRITE, URINE NEGATIVE (NEGATIVE); PH,URINE 5.5 (5.0-9.0); UGLUCOSE NEGATIVE (NEGATIVE)
--- NOTE | 2019-09-24 13:01 | NUR ---
09/24/19 RD FOLLOW UP COMPLETED PLEASE REFER TO NUTRITION ASSESSMENT UNDER CARE ACTIVITY FOR ESTIMATED NUTRITIONAL NEEDS. 1. CONTINUE CLEAR LIQUID DIET TOLERATED 2. RECOMMEND ENSURE CLEAR TID 3. ENCOURAGED INCREASING PO INTAKE 4. IF/WHEN PT IS MEDICALLY CLEAR CONSIDER GRADUALLY ADVANCING TO PUREE DIET 5. RD TO FOLLOW-UP 2-3 DAYS, HIGH RISK ALLISON DAN RD
[2019-09-24 13:03] LABS: RBC,URINE 0-5 /HPF (0-5); WBC,URINE 0-5 /HPF (0-5)
[2019-09-24] MEDS: CHLORHEXADINE GLUC 2% CLOTH TP SCH (13:14)
[2019-09-24] MEDS: MUPIROCIN CA NASAL 2% 1GM TUBE NS SCH (13:14)
--- NOTE | 2019-09-24 13:46 | NUR ---
FREQUENT ROUNDING ON PT PT APPEARS STABLE AND IN NO APPARENT DISTRESS. ALL SAFETY MEASURES ARE IN PLACE
--- NOTE | 2019-09-24 15:34 | NUR ---
FREQUENT ROUNDING ON PT PT APPEARS STABLE AND IN NO APPARENT DISTRESS. ALL SAFETY MEASURES ARE IN PLACE
[2019-09-24] MEDS: MORPHINE SULFATE 4 MG/ML SYR IVP PRN (16:33)
[2019-09-24 16:46] VITALS: BP 100/64
[2019-09-24] MEDS: FLUCONAZOLE 400 MG/NS PREMIX 200 ML IV SCH (17:39)
--- NOTE | 2019-09-24 17:39 | NUR ---
FREQUENT ROUNDING ON PT PT APPEARS STABLE AND IN NO APPARENT DISTRESS. ALL SAFETY MEASURES ARE IN PLACE
--- NOTE | 2019-09-24 19:26 | NUR ---
ENDORSED PT TO PM RN PT APPEARS STABLE AND IN NO APPARENT DISTRESS ALL SAFETY MEASURES ARE IN PLACE RIZVI CATH IN PLACE. COLOSTOMY IN PLACE. IV INTACT AND SHOWS NO SIGNS OF INFILTRATION OR INFLAMMATION.
--- NOTE | 2019-09-24 19:27 | NUR ---
REPORT RECEIVED FROM AM NURSE AT BEDSIDE. PT IN STABLE CONDITION. AAOX4. INTRODUCED SELF TO PT. BOARD UPDATED. PT HAS COMPLAINTS OF PAIN. WILL MEDICATE. NO SOB. AFEBRILE. PT IS BEDBOUND. PT HAS RIZVI. PT HAS COLOSTOMY. IV SITE L WRIST 22G RUNNING NS@60ML/HR PATENT AND INTACT. SKIN WARM, DRY, AND NOT INTACT DUE TO A SURGICAL INCISION IN THE ABD OPEN TO AIR WITH DOLORES PLACED S/P EXPLORATORY LAP. BED LOCKED IN LOW POSITION. CALL CARTER WITHIN REACH. SAFETY PRECAUTION IN PLACE. ALL NEEDS MET AT THIS TIME.
--- NOTE | 2019-09-24 19:53 | NUR ---
DILAUDID GIVEN FOR 9/10 ABDOMINAL PAIN. PT TOLERATED WELL.
[2019-09-24 20:00] VITALS: BP 135/87
--- NOTE | 2019-09-24 20:11 | NUR ---
COLACE, MIRALAX, MYELICON, AND VIT C GIVEN PO. REGLAN GIVEN IVP. HEPARIN GIVEN SUBQ. PT TOLERATED WELL.
--- NOTE | 2019-09-24 22:00 | NUR ---
RADHA MCDOWELL AND RUNNING. PT TOLERATING WELL.
--- NOTE | 2019-09-24 23:54 | NUR ---
AMA MCDOWELL AND RUNNING. PT TOLERATING WELL. DILAUDID GIVEN FOR 9/10 ABDOMINAL PAIN. PT TOLERATED WELL.
[2019-09-25] VITALS: BP 131/87
--- NOTE | 2019-09-25 01:45 | NUR ---
PT SLEEPING COMFORTABLY BUT AROUSABLE. NO S/S OF DISTRESS NOTED. NO COMPLAINTS OF PAIN. NO SOB. AFEBRILE. WILL CONTINUE TO MONITOR.
[2019-09-25 04:00] VITALS: BP 130/80
[2019-09-25] MEDS: METOCLOPRAMIDE 10 MG/2 ML INJ VIAL IVP SCH (04:13)
[2019-09-25] MEDS: NACL 0.9% 1,000 ML IV SCH (04:14)
[2019-09-25] MEDS: SIMETHICONE 80 MG TAB.CHEW PO SCH (04:14)
[2019-09-25] MEDS: HYDROmorphone PFS 2 MG/ML SYR IVP PRN (04:14)
[2019-09-26] MEDS: SENNA 8.6 MG TAB PO SCH ×3 (09:00→17:00)
[2019-09-26] MEDS: ZINC SULF 220 MG CAP PO SCH (09:00)
[2019-09-26] MEDS: CHOLESTYRAMINE 4 GM/9 GM PKT PO SCH (09:00)
[2019-09-26] MEDS: MULTIVITAMIN/MINERALS 1 TAB NGT SCH (09:00)
[2019-09-26] MEDS: LACTOBACILLUS RHAMNOSUS GG 1 EACH CAP PO SCH (09:00)
[2019-09-26] MEDS: PANTOPRAZOLE 40 MG INJ VIAL IVP SCH (09:00)
[2019-09-26] MEDS: MEGESTROL 400 MG/10 ML UDC NG SCH (09:00)
[2019-09-26] MEDS: POLYETHYLENE GLYCOL 17 GM/PKT PO SCH ×4 (13:00→21:33)
[2019-09-26] MEDS: PIPERACILLIN/TAZOBACTAM 3.375 GM in DEXTROSE 5% 50 ML IV SCH (18:00)
--- NOTE | 2019-09-26 19:25 | NUR ---
RECEIVED REPORT FROM DAY SHIFT NURSE. AAOX4. BEDBOUND. DENIES PAIN OR SOB. PT HAS MIDLINE INCISION WITH DOLORES S/P EXPLORE LAP, OPEN TO AIR. NO S/S OF INFECTION. PT HAS COLOSTOMY BAG TO LEFT ABD. RIZVI CATH IN PLACE DRAINING YELLOW URINE. IV TO LEFT HAND #NS AT 60 ML/HR INFUSING WELL. DISCUSSED PLAN OF CARE, PT VERBALIZED UNDERSTANDING. SAFETY PRECAUTION IN PLACE. CALL LIGHT WITHIN REACH.
[2019-09-26 20:11] LABS: ANION GAP 15.1 (8-16); CARBON DIOXIDE 19.1 mmol/L (21-32); CREATININE 0.7 mg/dL (0.7-1.3); MAGNESIUM 1.7 mg/dL (1.8-2.4); PHOSPHORUS 2.9 mg/dL (2.5-4.9); POTASSIUM 3.2 mmol/L (3.5-5.1)
[2019-09-26] MEDS: DOCUSATE SODIUM 100 MG GELCAP PO SCH ×2 (21:00→21:34)
[2019-09-26] MEDS: ASCORBIC ACID 500 MG TAB PO SCH ×2 (21:00→21:34)
[2019-09-26] MEDS: SIMETHICONE 80 MG TAB.CHEW PO SCH (21:00)
[2019-09-26] MEDS: METOCLOPRAMIDE 10 MG/2 ML INJ VIAL IVP SCH ×2 (21:00→21:33)
--- NOTE | 2019-09-26 22:00 | NUR ---
PT RESTING IN BED, WATCHING TV. ALL NEEDS ATTENDED AT THIS TIME.
--- NOTE | 2019-09-26 22:05 | NUR ---
YOGESH BARON, AUTOMATION ENGINEER FOR DR. ROLAND, FOR ORDERS. Addendum: 09/27/19 at 0243 by Clayton Menendez RN DISREGARD. [facility] PT.
[2019-09-26] MEDS: HYDROmorphone PFS 2 MG/ML SYR IVP PRN (22:15)
[2019-09-27] VITALS: BP 125/84
[2019-09-27] MEDS: PIPERACILLIN/TAZOBACTAM 3.375 GM in DEXTROSE 5% 50 ML IV SCH ×7 (01:12→18:49)
[2019-09-27] MEDS: NACL 0.9% 1,000 ML IV SCH ×3 (01:22→21:30)
[2019-09-27] MEDS: HYDROmorphone PFS 2 MG/ML SYR IVP PRN ×6 (01:57→20:59)
--- NOTE | 2019-09-27 01:59 | NUR ---
PT C/O ABD. PAIN 07/01. DILAUDID 4 MG IVP GIVEN.
--- NOTE | 2019-09-27 04:30 | NUR ---
PT LYING IN BED, WATCHING TV. NO PAIN AT THIS TIME. PT KEPT DRY AND COMFORTABLE. CALL LIGHT WITHIN REACH.
[2019-09-27] MEDS: METOCLOPRAMIDE 10 MG/2 ML INJ VIAL IVP SCH ×4 (05:00→20:58)
[2019-09-27] MEDS: SIMETHICONE 80 MG TAB.CHEW PO SCH ×4 (05:00→20:58)
[2019-09-27] MEDS ORDERED: HYDROmorphone PFS 2 MG/ML SYR ONE (05:41)
[2019-09-27] MEDS: LEVOTHYROXINE 0.025 MG TAB PO SCH ×2 (06:20→06:30)
--- NOTE | 2019-09-27 07:19 | NUR ---
ENDORSED PT TO DAY SHIFT NURSE. PT IN STABLE CONDITION.
--- NOTE | 2019-09-27 07:24 | NUR ---
RECEIVED PT FROM RELOCATION COUNSELOR NURSE, PT IS AWAKE AND LYING ON THE BED WITH SIDE RAILS UP AND CALL LIGHT WITHIN REACH, IV LINE ON THE LEFT HAND G. 22 WITH NS INFUSING AT 60ML/HR, COLOSTOMY AND RIZVI CATHETER IN PLACE, 26 DOLORES INTACT, NO DRAIN NOTED, NO SIGN OF DISTRESS NOTED AND WILL MONITOR PT.
[2019-09-27 08:00] VITALS: BP 133/88
[2019-09-27] MEDS ORDERED: VANCOMYCIN PER PHARMACY MC PRN (08:10)
[2019-09-27] MEDS: PANTOPRAZOLE 40 MG INJ VIAL IVP SCH (10:44)
[2019-09-27] MEDS: MEGESTROL 400 MG/10 ML UDC NG SCH (10:44)
[2019-09-27] MEDS: DOCUSATE SODIUM 100 MG GELCAP PO SCH ×2 (10:45→20:58)
[2019-09-27] MEDS: ASCORBIC ACID 500 MG TAB PO SCH ×2 (10:45→20:58)
[2019-09-27] MEDS: ZINC SULF 220 MG CAP PO SCH (10:45)
[2019-09-27] MEDS: POLYETHYLENE GLYCOL 17 GM/PKT PO SCH ×4 (10:46→20:59)
[2019-09-27] MEDS: SENNA 8.6 MG TAB PO SCH ×3 (10:48→16:34)
[2019-09-27] MEDS: LACTOBACILLUS RHAMNOSUS GG 1 EACH CAP PO SCH (11:01)
[2019-09-27] MEDS: MULTIVITAMIN/MINERALS 1 TAB NGT SCH (11:08)
[2019-09-27] MEDS: CHOLESTYRAMINE 4 GM/9 GM PKT PO SCH (11:08)
--- NOTE | 2019-09-27 11:57 | NUR ---
PT WAS GKIVEN IV ZOSYN VIA PIGGYBACK NOW. WILL MONITOR PT.
--- NOTE | 2019-09-27 14:18 | NUR ---
PT WAS GIVEN ORAL MEDICATIONS, C/O PAIN RATE OF 9/10, PAIN MEDICATION WAS GIVEN AND BP IS 128/81, PULSE IS 81, O2 SATURATION IS 99% ON ROOM AIR, WILL MONITOR PT.
[2019-09-27 16:00] VITALS: BP 120/79
[2019-09-27] MEDS: VANCOMYCIN 750 MG in DEXTROSE 5% 250 ML IV SCH (16:42)
--- NOTE | 2019-09-27 16:42 | NUR ---
PT IS AWAKE AND ORAL AND IV MEDICATIONS WERE GIVEN VIA PIGGYBACK, WILL MONITOR PT.
[2019-09-27] MEDS ORDERED: HYDROcodone/APAP 10/325 MG 1 TAB TAB PO SCH (17:00)
[2019-09-27 18:20] LABS: BASOPHILS # (AUTO) 0.1 K/uL (0.00-0.22); BASOPHILS % (AUTO) 0.7 % (0.0-2.0); EOSINOPHILS # (AUTO) 0.3 K/uL (0-0.4); EOSINOPHILS % (AUTO) 2.6 % (0.0-4.0); HEMATOCRIT 33.2 % (36-52); HEMOGLOBIN 10.5 g/dL (12.0-18.0); LYMPHOCYTES # (AUTO) 1.4 K/uL (2.0-11.5); LYMPHOCYTES % (AUTO) 11.6 % (20.5-51.1); MEAN CORPUSCULAR HEMOGLOBIN 27 pg (27-31); MEAN CORPUSCULAR HGB CONC 32 g/dL (33-37); MEAN CORPUSCULAR VOLUME 86.9 fL (80-94); MONOCYTES # (AUTO) 0.9 K/uL (0.8-1.0); MONOCYTES % (AUTO) 7.4 % (1.7-9.3); NEUTROPHILS # (AUTO) 9.6 K/uL (1.8-7.7); NEUTROPHILS % (AUTO) 77.7 % (42.2-75.2); PLATELET COUNT (AUTO) 274 K/uL (140-450); RED BLOOD CELL COUNT(AUTO) 3.83 MIL/uL (4.20-6.10); RED CELL DISTRIBUTION WIDTH 17.6 % (11.6-13.7); WHITE BLOOD COUNT (AUTO) 12.4 K/uL (4.8-10.8)
--- NOTE | 2019-09-27 18:49 | NUR ---
PT WAS GIVEN IV ZOSYN NOW. WILL MONITOR PT.
--- NOTE | 2019-09-27 19:15 | NUR ---
ENDORSED PT TO COOKER MEAL NURSE FOR CONTINUITY OF CARE.
--- NOTE | 2019-09-27 19:16 | NUR ---
REPORT RECEIVED FROM AM NURSE AT BEDSIDE. PT IN STABLE CONDITION. AAOX4. INTRODUCED SELF TO PT. BOARD UPDATED. PT HAS COMPLAINTS OF PAIN. WILL MEDICATE. NO SOB. AFEBRILE. IV SITE L WRIST 22G RUNNING NS@60ML/HR PATENT AND INTACT. SKIN WARM, DRY, AND NOT INTACT DUE TO SURGICAL INCISIONS WITH 26 DOLORES ON THE ABDOMEN VIVIEN. BED LOCKED IN LOW POSITION. CALL CARTER WITHIN REACH. SAFETY PRECAUTION IN PLACE. ALL NEEDS MET AT THIS TIME.
--- NOTE | 2019-09-27 20:59 | NUR ---
REGLAN GIVEN IVP. COLACE, MIRALAX, VIT C, AND MYLICON GIVEN PO. HEPARIN GIVEN SUBQ. DILAUDID GIVEN FOR 8/10 ABDOMINAL PAIN. PT TOLERATED WELL.
[2019-09-27] MEDS ORDERED: BACLOFEN 10 MG TAB PO SCH (21:00)
--- NOTE | 2019-09-27 22:30 | NUR ---
PT IN BED AWAKE AND ALERT. NO S/S OF DISTRESS NOTED. WILL CONTINUE TO MONITOR.
--- NOTE | 2019-09-27 23:02 | NUR ---
RECEIVED PT ON ROOM AIR WITH SP02 97%, AND A CLEAR BREATH SOUNDS. NO RESPIRATORY DISTRESS NOTED. PRN TX NOT GIVEN. WILL CONTINUE TO MONITOR PT
[2019-09-28] VITALS: BP 135/87
[2019-09-28] MEDS: PIPERACILLIN/TAZOBACTAM 3.375 GM in DEXTROSE 5% 50 ML IV SCH ×5 (00:06→23:38)
--- NOTE | 2019-09-28 00:06 | NUR ---
AMA HUNG AND RUNNING. PT TOLERATING WELL.
[2019-09-28] MEDS: HYDROmorphone PFS 2 MG/ML SYR IVP PRN ×6 (01:14→21:34)
--- NOTE | 2019-09-28 01:14 | NUR ---
DILAUDID GIVEN FOR 8/10 ABDOMINAL PAIN. PT TOLERATED WELL.
[2019-09-28] MEDS: VANCOMYCIN 750 MG in DEXTROSE 5% 250 ML IV SCH (03:45)
--- NOTE | 2019-09-28 03:45 | NUR ---
RADHA MCDOWELL AND RUNNING. PT TOLERATING WELL.
--- NOTE | 2019-09-28 04:45 | NUR ---
DILAUDID GIVEN FOR 9/10 ABDOMINAL PAIN. PT TOLERATED WELL.
[2019-09-28] MEDS: SIMETHICONE 80 MG TAB.CHEW PO SCH ×3 (05:32→21:40)
[2019-09-28] MEDS: LEVOTHYROXINE 0.025 MG TAB PO SCH (05:32)
[2019-09-28] MEDS: METOCLOPRAMIDE 10 MG/2 ML INJ VIAL IVP SCH ×3 (05:32→21:34)
--- NOTE | 2019-09-28 05:33 | NUR ---
SYNTHROID AND MYLICON GIVEN PO. REGLAN GIVE THROUGH THE IV. ZOSYN HUNG AND RUNNING. PT TOLERATING WELL.
--- NOTE | 2019-09-28 06:56 | NUR ---
PT SLEEPING COMFORTABLY BUT AROUSABLE. NO S/S OF DISTRESS NOTED. PT IN STABLE CONDITION.
--- NOTE | 2019-09-28 07:15 | NUR ---
RECEIVED PT FROM ELECTROMECHANICAL INSPECTOR NURSEOZ, PT IS AWAKE AND C/O PAIN RATE OF 9/10, WILL MEDICATE, SIDE RAILS ARE UP AND CALL LIGHT WITHIN REACH, IV LINE ON THE LEFT WRIST G. 22 WITH ZOSYN INFUSING AT 100ML/HR, SAFETY AND FALL PRECAUTION ENFORCED, COLOSTOMY AND RIZVI CATHETER IN PLACE, NO SIGN OF DISTRESS NOTED AND WILL CONTINUE TO MONITOR PT.
[2019-09-28 08:00] VITALS: BP 157/99
--- NOTE | 2019-09-28 08:08 | NUR ---
PT C/O PAIN RATE OF 10/10, DILAUDID WAS GIVEN VIA IV PUSH, BP IS 133/84, PULSE IS 95 AND O2 SATURATION IS 100%, WILL RE-ASSESS PAIN AND MONITOR PT, NO SIGN OF DISTRESS NOTED TO THE PT.
[2019-09-28] MEDS: PANTOPRAZOLE 40 MG INJ VIAL IVP SCH (08:18)
[2019-09-28] MEDS: MEGESTROL 400 MG/10 ML UDC NG SCH (08:19)
[2019-09-28] MEDS: ASCORBIC ACID 500 MG TAB PO SCH ×2 (08:19→21:40)
[2019-09-28] MEDS: LACTOBACILLUS RHAMNOSUS GG 1 EACH CAP PO SCH (08:19)
[2019-09-28] MEDS: ZINC SULF 220 MG CAP PO SCH (08:19)
--- NOTE | 2019-09-28 08:19 | NUR ---
PT WAS GIVEN THE ORAL MEDICATIONS, TOLERATED IT, PARAMETER CHECKED, WILL MONITOR PT.
[2019-09-28] MEDS: POLYETHYLENE GLYCOL 17 GM/PKT PO SCH ×4 (08:20→21:00)
[2019-09-28] MEDS: DOCUSATE SODIUM 100 MG GELCAP PO SCH ×2 (08:20→21:00)
[2019-09-28] MEDS: CHOLESTYRAMINE 4 GM/9 GM PKT PO SCH (09:00)
[2019-09-28 09:38] LABS: BASOPHILS % (AUTO) 0.3 % (0.0-2.0); EOSINOPHILS # (AUTO) 0.2 K/uL (0-0.4); EOSINOPHILS % (AUTO) 2.1 % (0.0-4.0); HEMATOCRIT 30.6 % (36-52); HEMOGLOBIN 9.8 g/dL (12.0-18.0); LYMPHOCYTES # (AUTO) 1.5 K/uL (2.0-11.5); LYMPHOCYTES % (AUTO) 12.8 % (20.5-51.1); MEAN CORPUSCULAR HEMOGLOBIN 28 pg (27-31); MEAN CORPUSCULAR HGB CONC 32 g/dL (33-37); MEAN CORPUSCULAR VOLUME 86.8 fL (80-94); MONOCYTES # (AUTO) 0.8 K/uL (0.8-1.0); MONOCYTES % (AUTO) 6.8 % (1.7-9.3); NEUTROPHILS # (AUTO) 9.3 K/uL (1.8-7.7); PLATELET COUNT (AUTO) 270 K/uL (140-450); RED BLOOD CELL COUNT(AUTO) 3.53 MIL/uL (4.20-6.10); RED CELL DISTRIBUTION WIDTH 17.5 % (11.6-13.7); WHITE BLOOD COUNT (AUTO) 11.9 K/uL (4.8-10.8)
[2019-09-28 10:07] LABS: MAGNESIUM 1.6 mg/dL (1.8-2.4); PHOSPHORUS 2.2 mg/dL (2.5-4.9)
[2019-09-28 10:30] LABS: ANION GAP 15.1 (8-16); CREATININE 0.7 mg/dL (0.7-1.3); POTASSIUM 3.1 mmol/L (3.5-5.1)
[2019-09-28] MEDS: SENNA 8.6 MG TAB PO SCH ×3 (11:25→17:00)
[2019-09-28] MEDS: MULTIVITAMIN/MINERALS 1 TAB NGT SCH (11:25)
--- NOTE | 2019-09-28 12:12 | NUR ---
PT C/O PAIN RATE OF 9/10, PAIN MEDICATION WAS GIVEN VIA IV PUSH, ORAL AND ANOTHER IV PUSH MEDICATIONS WERE GVIEN TO PT AND TOLERATED IT. WILL MONITOR PT.
[2019-09-28] MEDS ORDERED: MAGNESIUM OXIDE 400 MG TAB PO SCH (15:00)
[2019-09-28] MEDS ORDERED: POTASSIUM CHLORIDE 10 MEQ TABER PO SCH (15:00)
[2019-09-28] MEDS ORDERED: POTASSIUM PHOSPHATE 15 MM in NACL 0.9% 250 ML IV SCH (15:30)
[2019-09-28] MEDS: NACL 0.9% 1,000 ML IV SCH (15:43)
--- NOTE | 2019-09-28 15:44 | NUR ---
PT WAS GIVEN DILAUDID IV PUSH FOR THE C/O PAIN RATE OF 8/10, BP IS 129/82, PULSE IS 86, O2 SATURATION IS 99%, WILL RE-ASSESS PAIN AND MONITOR PT.
[2019-09-28 16:00] VITALS: BP 129/82
[2019-09-28] MEDS ORDERED: POTASSIUM CHLORIDE 20% 40 MEQ/15 ML UDC PO SCH (16:00)
--- NOTE | 2019-09-28 17:39 | NUR ---
PT WAS GIVEN POTASSIUM 40MEQ FOR THE K LEVEL OF 3.1, BUT CANNOT BE SAVED IN THE EMAR SAYING MISSING OE ORDER, IV ZOSYN WAS ALSO GIVEN VIA PIGGYBACK, SENNA AND MIRALAX WAS HELD BECAUSE PT'S BOWEL IS LIQUID, WILL MONITOR PT.
[2019-09-28] MEDS: MORPHINE SULFATE 4 MG/ML SYR IVP PRN (17:51)
--- NOTE | 2019-09-28 17:51 | NUR ---
PT C/O PAIN RATE OF 7/10 AND MORPHINE WAS GIVEN VIA IV PUSH, BP IS 120/76, PULSE 83, O2 SATURATION IS 98%, WILL RE-ASSESS AND MONITOR PT.
[2019-09-28 19:01] LABS: MAGNESIUM 1.9 mg/dL (1.8-2.4); PHOSPHORUS 2.2 mg/dL (2.5-4.9)
[2019-09-28 19:02] LABS: ANION GAP 12.1 (8-16); CARBON DIOXIDE 20.2 mmol/L (21-32); CREATININE 0.7 mg/dL (0.7-1.3); POTASSIUM 3.3 mmol/L (3.5-5.1)
--- NOTE | 2019-09-28 19:30 | NUR ---
Patient's Plan of Care was discussed and reviewed with METAL HARDENER: CINTHIA
--- NOTE | 2019-09-28 19:33 | NUR ---
ENDORSED PT TO CLEANER CARPET AND UPHOLSTERY NURSE FOR CONTINUITY OF CARE.
--- NOTE | 2019-09-28 19:34 | NUR ---
RECD. RESTING IN BED, AWAKE, A/0X3. RESPIRATION EVEN AND UNLABORED. IVPB POTASSIUM CHLORIDE INFUSING AT 45 ML/HR, LEFT HAND G20. INCISION IN THE ABDOMEN WITH DOLORES OPEN TO AIR, DRY AND INTACT. WITH COLOSTOMY BAG AT THE LEFT ABDOMEN DRAINING LIQUID BROWNISH STOOLS. F/C PATENT DRAINING YELLOW URINE. PLAN OF CARE DISCUSSED. VERBALIZED UNDERSTANDING. PAIN IN THE ABDOMEN 10/31, WILL MEDICATE ORDERED.
--- NOTE | 2019-09-28 20:45 | NUR ---
RECEIVED PATIENT ON ROOM AIR, PULSE OX SAT 98%. PT DENIES SOB. PRN HHN NOT INDICATED AT THIS TIME. PATIENT MADE AWARE OF MEDICATION FREQUENCY. NO ACUTE RESPIRATORY DISTRESS NOTED. WILL CONTINUE TO MONITOR.
--- NOTE | 2019-09-28 21:40 | NUR ---
REFUSED COLACE AND MIRALAX STATED HE IS HAVING LIQUID STOOLS.
[2019-09-29] VITALS: BP 128/79
--- NOTE | 2019-09-29 | NUR ---
SLEEPING COMFORTABLY IN BED.
[2019-09-29] MEDS: HYDROmorphone PFS 2 MG/ML SYR IVP PRN ×5 (00:55→14:32)
[2019-09-29] MEDS ORDERED: VANCOMYCIN 1,000 MG in DEXTROSE 5% 250 ML IV SCH (03:00)
--- NOTE | 2019-09-29 03:00 | NUR ---
SCHEDULED VANCOMYCIN IVPB GIVEN BY EVAN CONKLIN.
[2019-09-29] MEDS: METOCLOPRAMIDE 10 MG/2 ML INJ VIAL IVP SCH ×2 (04:35→13:47)
[2019-09-29] MEDS: NACL 0.9% 1,000 ML IV SCH (05:50)
[2019-09-29] MEDS: LEVOTHYROXINE 0.025 MG TAB PO SCH (05:53)
[2019-09-29] MEDS: SIMETHICONE 80 MG TAB.CHEW PO SCH ×2 (05:53→13:47)
[2019-09-29 06:30] LABS: ANION GAP 13.4 (8-16); CARBON DIOXIDE 21.2 mmol/L (21-32); CREATININE 0.7 mg/dL (0.7-1.3); POTASSIUM 3.6 mmol/L (3.5-5.1)
[2019-09-29 06:32] LABS: MAGNESIUM 1.5 mg/dL (1.8-2.4); PHOSPHORUS 2.4 mg/dL (2.5-4.9)
[2019-09-29 06:34] LABS: HEMATOCRIT 28.4 % (36-52); HEMOGLOBIN 9.1 g/dL (12.0-18.0); MEAN CORPUSCULAR HEMOGLOBIN 28 pg (27-31); MEAN CORPUSCULAR HGB CONC 32 g/dL (33-37); MEAN CORPUSCULAR VOLUME 86.4 fL (80-94); PLATELET COUNT (AUTO) 247 K/uL (140-450); RED BLOOD CELL COUNT(AUTO) 3.29 MIL/uL (4.20-6.10); RED CELL DISTRIBUTION WIDTH 17.3 % (11.6-13.7); WHITE BLOOD COUNT (AUTO) 11.7 K/uL (4.8-10.8)
[2019-09-29] MEDS: PIPERACILLIN/TAZOBACTAM 3.375 GM in DEXTROSE 5% 50 ML IV SCH ×2 (06:39→13:51)
[2019-09-29 07:01] LABS: EOSINOPHILS % (MANUAL) 3 % (0-4); LYMPHOCYTES % (MANUAL) 13 % (20-46); MONOCYTES % (MANUAL) 12 % (5-12)
--- NOTE | 2019-09-29 07:25 | NUR ---
CONDITION REMAIN STABLE. ENDORSED TO AM SHIFT NURSE FOR CONTINUITY OF CARE.
--- NOTE | 2019-09-29 07:27 | NUR ---
RECEIVED BEDSIDE REPORT FROM CHILD WELFARE COUNSELOR NURSE FOR CONTINUITY OF CARE. PATIENT IS AWAKE AND RESTING ON BED. PATIENT IS AAOX 4. RESPIRATION EVEN AND UNLABORED ON RA. DENIED PAIN, SOB AND DIZZINESS AT THIS TIME. NO SIGNS OF DISTRESS NOTED. IV CLEAN AND INTACT, INFUSING PER MD ORDER. WOUNDS NOTED, COVERED WITH DRESSING CLEAN AND DRY. PATIENT IS BEDREST AND INCONTINENT. RIZVI IN PLACE AND DRAINING YELLOW URINE WITH GRAVITY. COLOSTOMY BAG IN PLACE. SAFETY MEASURES IN PLACE. FALL RISK PROTOCOL AND BED ALARM ACTIVATED. BED IN LOW POSITION AND CALL LIGHT WITHIN REACH.
[2019-09-29 08:00] VITALS: BP 114/73
--- NOTE | 2019-09-29 08:10 | NUR ---
PATIENT COMPLAINED HE HAS 8/10 PAIN ON HIS ABDOMEN AND BACK, REPOSITIONED PATIENT AND INEFFECTIVE. MEDICATED WITH PRN PAIN MED DILAUDID, MED ED PROVIDED TO PATIENT AND PATIENT VERBALIZED UNDERSTANDING. PATIENT AWAKE AND EATING HIS BREAKFAST AT THIS TIME. NO SIGNS OF DISTRESS NOTED. SAFETY MEASURES IN PLACE. BED IN LOW POSITION AND CALL LIGHT WITHIN REACH. BED ALARM ACTIVATED. INSTRUCTED PATIENT TO USE THE CALL LIGHT FOR ANY ASSISTANCE AND PATIENT WAS AWARE.
--- NOTE | 2019-09-29 08:33 | NUR ---
RECEIVED A CALL FROM PATIENT'S SIS SONG AND INQUIRED ABOUT IF PT IS MEDICALLY STABLE TO DC/TRANSFER, INFORMED SONG THAT BASED ON AM ROUND, DR SAID PT IS READY TO BE DC/TRANSFER. SONG REQUESTED TO SPEAK WITH , NOTIFIED DR OMER.
--- NOTE | 2019-09-29 09:02 | NUR ---
NOTIFIED ADMINISTRATION AND SPOKE WITH JERI TO UPDATE THE CORRECT PHONE # FOR PT'S SIS TO [phone]. PER JERI, SHE WILL UPDATE THE RECORD.
[2019-09-29] MEDS: DOCUSATE SODIUM 100 MG GELCAP PO SCH (09:43)
[2019-09-29] MEDS: POLYETHYLENE GLYCOL 17 GM/PKT PO SCH ×2 (09:44→13:47)
[2019-09-29] MEDS: MULTIVITAMIN/MINERALS 1 TAB NGT SCH (09:44)
[2019-09-29] MEDS: ZINC SULF 220 MG CAP PO SCH (09:44)
[2019-09-29] MEDS: ASCORBIC ACID 500 MG TAB PO SCH (09:44)
[2019-09-29] MEDS: SENNA 8.6 MG TAB PO SCH ×2 (09:44→13:47)
[2019-09-29] MEDS: PANTOPRAZOLE 40 MG INJ VIAL IVP SCH (09:45)
[2019-09-29] MEDS: MEGESTROL 400 MG/10 ML UDC NG SCH (09:46)
[2019-09-29] MEDS: LACTOBACILLUS RHAMNOSUS GG 1 EACH CAP PO SCH (09:46)
[2019-09-29] MEDS: CHOLESTYRAMINE 4 GM/9 GM PKT PO SCH (09:46)
--- NOTE | 2019-09-29 09:46 | NUR ---
ADMINISTERED MEDS PER MD ORDER, MEDS ED PROVIDED TO PATIENT AND PATIENT VERBALIZED UNDERSTANDING. PATIENT TOLERATED WELL. PATIENT AWAKE AND RESTING ON BED AT THIS TIME. NO SIGNS OF DISTRESS NOTED. SAFETY MEASURES IN PLACE. BED IN LOW POSITION AND CALL LIGHT WITHIN REACH. INSTRUCTED PATIENT TO USE THE CALL LIGHT FOR ANY ASSISTANCE AND PATIENT WAS AWARE.
--- NOTE | 2019-09-29 11:40 | NUR ---
NOTIFIED PT' SIS SONG THAT PT WILL BE TRANSFER TO [facility] [place] [place] TODAY. SONG WAS AWARE. PATIENT IS TALKING TO SIS OVER THE PHONE. NO SIGNS OF DISTRESS NOTED. SAFETY MEASURES IN PLACE.
[2019-09-29] MEDS ORDERED: MAG SULF 2000 MG/WATER PREMIX 50 ML IV SCH (11:45)
--- NOTE | 2019-09-29 12:19 | NUR ---
ADMINISTERED MEDS PER MD ORDER, MEDS ED PROVIDED TO PATIENT AND PATIENT VERBALIZED UNDERSTANDING. PATIENT TOLERATED WELL. PT ALSO COMPLAINED 8/10 PAIN, MEDICATED PATIENT. PATIENT AWAKE AND RESTING ON BED AT THIS TIME. NO SIGNS OF DISTRESS NOTED. SAFETY MEASURES IN PLACE. BED IN LOW POSITION AND CALL LIGHT WITHIN REACH. INSTRUCTED PATIENT TO USE THE CALL LIGHT FOR ANY ASSISTANCE AND PATIENT WAS AWARE.
--- NOTE | 2019-09-29 12:37 | NUR ---
SCREEN FOR LOW AMAIRANI SCALE AT RISK, SKIN ASSESSMENT , MID ABDOMINAL SURGICAL WOUNDS , DOLORES IN PLACES NO S/S OF INFECTION, NO S/S OF WOUND DEHISCENCE, LLQ ABD COLOSTOMY FUNCTIONING WITH SOFT AND LIQUID STOOL OUTPUT, QUYEN STOMA SKIN INTACT,. RIGHT INNER BUTTOCK 1X0.5 CM DTI 100% MAROON, SKIN INTACT, OPTIFOAM IN PLACE. CONTINUE TO FOLLOW PRESSURE ULCER PREVENTION INTERVENTIONS. -PAINT SURGICAL DOLORES WITH BETADINE SOLUTION BID AND VIVIEN -COLOSTOMY CARE FACILITY PROTOCOL -TURN AND REPOSITION PATIENT Q 2H -ASSESS AND MONITOR SKIN CONDITION DURING POSITION CHANGE -OFFLOAD BILATERAL HEELS BY PLACING PILLOWS UNDER CALVES AT ALL TIMES, UNLESS OTHERWISE CONTRAINDICATED -PRESSURE REDISTRIBUTION BY PLACING PILLOWS AND OFFLOADING SACRALCOCCYX AND BUTTOCKS -KEEP SKIN CLEAN AND DRY AT ALL TIMES.
[2019-09-29] MEDS ORDERED: GAUZE TP SCH (13:00)
[2019-09-29] MEDS ORDERED: Vancomycin Per Pharmacy MC (13:17)
[2019-09-29] MEDS ORDERED: LEVO750T2 PO (13:17)
[2019-09-29] MEDS ORDERED: DIL2I IVP (13:17)
--- NOTE | 2019-09-29 13:51 | NUR ---
ADMINISTERED SCHEDULED MEDS PER MD ORDER, PATIENT TOLERATED WELL. MEDS ED PROVIDED. MACHINE II TRIMMER CHANGED PATIENT INTO PINK AND AWAITING FOR TRANSFER. NO SIGNS OF DISTRESS NOTED. SAFETY MEASURES IN PLACE. BED IN LOW POSITION AND CALL LIGHT WITHIN REACH.
[2019-09-29] MEDS ORDERED: POTASSIUM PHOSPHATE 15 MM in NACL 0.9% 250 ML IV SCH (14:00)
--- NOTE | 2019-09-29 14:00 | NUR ---
CALLED [facility] AND GAVE FULL REPORT TO MERE GORDON, MERE WAS AWARE THAT PT IS GOING TO TRANSFER TO HER FACILIITY. PROVIDED A CALL BACK NUMBER FOR FURTHER FOLLOW UP/ QUESTIONS.
--- NOTE | 2019-09-29 14:32 | NUR ---
DR RUBIO IS GOING TO FIX PT'S SURGICAL STAPLE AND ASK TO PREMEDICATED PT FOR PT. ADMINISTERED PRN DILAUDID FOR 9/10 PAIN.
--- NOTE | 2019-09-29 14:58 | NUR ---
DISCHARGE INSTRUCTION PROVIDED TO PATIENT AND PT'S GURPREET BESS AT BEDSIDE. EDUCATED PT ON FOLLOW UP WITH MD, MEDICATION REGIMENS, SIDE EFFECTS, AND WOUND CARE. ANSWERED ALL PT'S SIS SONG'S QUESTIONS AND SHE VERBALIZED UNDERSTANDING. SONG TOOK ALL PATIENT'S BELONGING. PATIENT IS GOING TO TRANSFER WITH [facility] FOR ABX TREATMENT AT [facility] [place]. PATIENT IS GOING TO TRANSFER TO [facility] [place] ACCOMPANIED WITH [facility] TRANSPORTATION PERSONNELS. PATIENT IS IN STABLE CONDITION.
[2019-09-29] MEDS ORDERED: oxyCODONE/APAP 5/325 MG 1 TAB TAB PO SCH (15:00)
[2019-09-30 19:40] LABS: HEMOGLOBIN 10.3 g/dL (12.0-18.0); MEAN CORPUSCULAR HEMOGLOBIN 28 pg (27-31); MEAN CORPUSCULAR HGB CONC 32 g/dL (33-37); MEAN CORPUSCULAR VOLUME 86.4 fL (80-94); PLATELET COUNT (AUTO) 252 K/uL (140-450); RED BLOOD CELL COUNT(AUTO) 3.71 MIL/uL (4.20-6.10); RED CELL DISTRIBUTION WIDTH 17.9 % (11.6-13.7); WHITE BLOOD COUNT (AUTO) 11.9 K/uL (4.8-10.8)
[2019-09-30 19:41] LABS: BASOPHILS % (AUTO) 0.3 % (0.0-2.0); EOSINOPHILS % (AUTO) 2.1 % (0.0-4.0); LYMPHOCYTES # (AUTO) 1.2 K/uL (2.0-11.5); LYMPHOCYTES % (AUTO) 9.9 % (20.5-51.1); MONOCYTES % (AUTO) 7.1 % (1.7-9.3); NEUTROPHILS # (AUTO) 9.6 K/uL (1.8-7.7); NEUTROPHILS % (AUTO) 80.6 % (42.2-75.2)
[2019-09-30 19:42] LABS: EOSINOPHILS # (AUTO) 0.3 K/uL (0-0.4); MONOCYTES # (AUTO) 0.8 K/uL (0.8-1.0)
== END 2019-09-29 14:58 | DRG 853 ==
LOC: MED 11:49 → MTU 15:06 → MIC 19:09 → MTU 09-21 15:23
PROVIDERS: ADMIT General Practice; ATTEND General Practice
PROC: 0D1N0Z4 Bypass Sigmoid Colon to Cutaneous, Open Approach (ICD-10-PCS; 2019-09-20)
PROC: 0D967ZZ Drainage of Stomach, Via Natural or Artificial Opening (ICD-10-PCS; 2019-09-20)
PROC: 0DBN0ZZ Excision of Sigmoid Colon, Open Approach (ICD-10-PCS; principal; 2019-09-20 17:00)
PROC: 30233N1 Transfusion of Nonautologous Red Blood Cells into Peripheral Vein, Percutaneous Approach (ICD-10-PCS; 2019-09-21)
DX: A41.02 Sepsis due to Methicillin resistant Staphylococcus aureus (principal); J69.0 Pneumonitis due to inhalation of food and vomit; E43 Unspecified severe protein-calorie malnutrition; I21.A1 Myocardial infarction type 2; J96.01 Acute respiratory failure with hypoxia; E87.1 Hypo-osmolality and hyponatremia; K56.609 Unspecified intestinal obstruction, unspecified as to partial versus complete obstruction; C20 Malignant neoplasm of rectum; C78.7 Secondary malignant neoplasm of liver and intrahepatic bile duct; R18.8 Other ascites; R64 Cachexia; C18.9 Malignant neoplasm of colon, unspecified; J98.11 Atelectasis; E83.42 Hypomagnesemia; Z68.20 Body mass index [BMI] 20.0-20.9, adult; D64.9 Anemia, unspecified; E03.9 Hypothyroidism, unspecified; E11.9 Type 2 diabetes mellitus without complications; E83.39 Other disorders of phosphorus metabolism; I10 Essential (primary) hypertension; I25.10 Atherosclerotic heart disease of native coronary artery without angina pectoris; M06.9 Rheumatoid arthritis, unspecified; F03.90 Unspecified dementia, unspecified severity, without behavioral disturbance, psychotic disturbance, mood disturbance, and anxiety; K59.09 Other constipation; R62.7 Adult failure to thrive; E87.6 Hypokalemia; Z87.891 Personal history of nicotine dependence; Z79.899 Other long term (current) drug therapy; Z92.21 Personal history of antineoplastic chemotherapy
CPT/HCPCS: 36415; 71045; 74018; 80048; 80053; 80202; 81001; 82140; 82150; 82550; 82948; 83036; 83605; 83615; 83690; 83735; 83880; 84100; 84436; 84443; 84484; 85025; 85610; 85730; 86886; 86900; 86901; 86920; 87040; 87070; 87081; 87086; 87186; 88307; 92610; 93005; 96361; 96374; 97110; 97112; 97161-GP; 97530; 99285; C1758; C9113; J0330; J1100; J1170; J1200; J1450; J1642; J1644; J1885; J2001; J2250; J2270; J2405; J2543; J2704; J2710; J2765; J3010; J3370; J3475; J3480; J3490; J7030; J7060; J7620; P9016; Q0092